=== PATIENT | female | born 1990 | race African-American/Black ===

== ENCOUNTER 2020-03-18 14:12 | Outpatient (REF) | payer MEDICAID, SELFPAY | END 2020-03-18 14:13 | disposition home or self-care (01) | LOC: HO.LAB 14:12 | PROVIDERS: PCP Internal Medicine Geriatric Medicine; Visit Provider Internal Medicine | DX: Z20.822 Contact with and (suspected) exposure to COVID-19 (principal) | CPT/HCPCS: 36415; C9803; U0003 ==

== ENCOUNTER 2020-07-02 13:44 | Emergency (ER) | payer OTHER, MEDICAID, SELFPAY ==
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
[2020-07-02 14:08] VITALS: BP 122/79; PULSE 82; RESP 16; TEMP 36.8; O2SAT 100; BMI 20.8
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
[2020-07-02 15:29] LABS: UPreg QC Valid YES; Urine Pregnancy NEGATIVE (NEGATIVE)
--- NOTE | 2020-07-02 15:51 | PC.NURSE ---
PT TO BE MEDICATED WITH TYLENOL UPON RETURN TO [facility]
[2020-07-02] MEDS: Acetaminophen 325 MG TABLET 650 MG PO (16:11)
== END 2020-07-02 17:24 | disposition home or self-care (01) ==
PROVIDERS: Nurse Practitioner Family; Emergency Provider Emergency Medicine; PCP Internal Medicine Geriatric Medicine
DX: M54.2 Cervicalgia (principal); S06.0X0A Concussion without loss of consciousness, initial encounter; S70.12XA Contusion of left thigh, initial encounter; V43.62XA Car passenger injured in collision with other type car in traffic accident, initial encounter; Y93.89 Activity, other specified; Y92.414 Local residential or business street as the place of occurrence of the external cause; Y99.9 Unspecified external cause status
CPT/HCPCS: 70450; 71101; 72125; 73030; 73552; 81025; 99283; 99284

== ENCOUNTER 2020-09-19 09:46 | Outpatient (REF) | payer MEDICAID, SELFPAY | END 2020-09-19 09:47 | disposition home or self-care (01) | LOC: HO.LAB 09:46 | PROVIDERS: PCP Internal Medicine Geriatric Medicine; Visit Provider Internal Medicine | DX: Z20.822 Contact with and (suspected) exposure to COVID-19 (principal) | CPT/HCPCS: C9803; U0003; U0005 ==

== ENCOUNTER 2021-04-18 23:27 | Emergency (ER) | payer MEDICAID, SELFPAY ==
--- NOTE | ~2021-04-18 | XR_ITS ---
EXAMINATION: XR CHEST CLINICAL INFORMATION: Cough. Fevers. COMPARISON: 07/02/2020 TECHNIQUE: 2 views of the chest were obtained. FINDINGS: The lungs are well expanded. There is no focal consolidation, edema, or effusion. No pneumothorax. The cardiomediastinal silhouette is within normal limits. No acute osseous abnormality. Surgical clips overlie the chest. XR/XR chest 2V IMPRESSION: Clear lungs.
[2021-04-19 00:11] VITALS: BP 123/85; PULSE 85; RESP 16; TEMP 36.9; O2SAT 98; BMI 20.1
[2021-04-19 00:44] LABS: COVID-19 Test Negative (Negative)
[2021-04-19 02:34] VITALS: BP 113/77; PULSE 94; RESP 18; TEMP 37.4; O2SAT 100
[2021-04-19] MEDS: Acetaminophen 325 MG TABLET 975 MG PO (02:52)
[2021-04-19] MEDS: Ondansetron ODT 4 MG TAB.RAPDIS TRANSLINGU (02:53)
[2021-04-19 03:33] LABS: Appearance Urine CLEAR; Color Urine YELLOW; Glucose Urine UA NEG (NEG); Leukocyte Esterase Urine NEG (NEG); Nitrite Urine NEG (NEG); Specific Gravity - Urine >= 1.030 (1.005-1.025); Urine Blood NEG (NEG); Urine Ketones 5 MG/DL (NEG); Urine Protein NEG (NEG-TRACE)
[2021-04-19 03:37] LABS: UPreg QC Valid YES; Urine Pregnancy NEGATIVE (NEGATIVE)
[2021-04-19 04:00] VITALS: BP 109/66; PULSE 95; RESP 17; TEMP 37; O2SAT 95
[2021-04-19] MEDS: Ibuprofen 400 MG TABLET PO (04:02)
--- NOTE | 2021-04-19 04:25 | ED.URI ---
HPI - URI/Sore Throat General Chief Complaint: Upper Respiratory Symptoms Stated Complaint: fever Time Seen by Provider: 04/19/21 03:40 Source: patient and tree doctor Mode of arrival: ambulatory History of Present Illness HPI Narrative: 31-year-old female with presentation for fever, chills, body aches since Saturday and states that it had worsened today. Patient also describes cough with nasal congestion and shortness of breath. Related Data Previous Rx's Medication Instructions Recorded cyclobenzaprine 10 mg tablet 10 mg PO BID PRN #10 tab 07/02/20 ibuprofen 600 mg tablet 600 mg PO Q8H PRN #20 tab 07/02/20 ondansetron 4 mg disintegrating 4 mg PO Q6H PRN #7 tab 04/19/21 tablet Allergies Allergy/AdvReac Type Severity Reaction Status Date / Time shellfish derived Allergy Mild HIVES Verified 04/19/21 02:52 [SHELLFISH DERIVED] shellfish Allergy Unknown swelling Uncoded 04/19/21 02:52 Review of Systems Review of Systems: Pertinent positives and negatives as stated in HPI 10 point review of symptoms is otherwise negative. PMFSH Past Medical History Source: nursing notes reviewed Medical History No known health problems Social History Social History Advance Directives: No Advance Directives Information Provided: Yes Patient : No Physical Exam Vital Signs: Vital Signs: Last Vital Signs Temp 98.6 F 04/19/21 04:00 Pulse 95 04/19/21 04:00 Resp 17 04/19/21 04:00 BP 109/66 04/19/21 04:00 Pulse Ox 95 04/19/21 04:00 BMI result Body Mass Index 20.1 VITAL SIGNS: Reviewed. GENERAL: Well developed, well nourished, in no acute distress. HEAD: Normocephalic EARS: Ext canals without abnormality, TMs non-bulging and non-erythematous NOSE: Nasal congestion OROPHARYNX: no oral lesions noted, posterior pharynx clear and non-erythematous without noted tonsillar enlargement/erythema/exudates NECK: Supple, no adenopathy LUNGS: Normal breath sounds, no expiratory wheeze, no tachypnea, cough is noted. SpO2<95> CARDIOVASCULAR: Regular rate and rhythm without noted murmurs, no JVD or lower extremity edema. ABDOMEN: Soft, non-tender, non-distended with bowel sounds. MUSCULOSKELETAL: No tenderness, deformities, or effusions noted on gross inspection. EXTREMITIES: No cyanosis, clubbing or edema. SKIN: Inspection of the skin reveals no rashes NEUROLOGIC: Alert and oriented x 4. Strength and sensation to light touch were grossly intact x 4. Course Course Course Narrative: 31-year-old female with history and clinical presentation consistent with viral illness. Review of all investigations negative for acute findings, patient was provided with combination analgesics as well as antiemetic and on re-evaluation is reporting some improvement in the body aches. She is otherwise discharged home in stable condition with instructions follow-up with her primary care provider. MDM - URI/Sore Throat Lab Data Labs: Lab Results 04/19/21 04/19/21 04/19/21 Range/Units 00:13 03:19 03:19 Urine Color YELLOW Urine Appearance CLEAR Urine pH 6.0 (5.0-8.0) Ur Specific [place] >= 1.030 H (1.005-1.025) Urine Protein NEG (NEG-TRACE) MG/DL Urine Glucose (UA) NEG (NEG) MG/DL Urine Ketones 5 (NEG) MG/DL Urine Blood NEG (NEG) Urine Nitrite NEG (NEG) Ur Leukocyte Esterase NEG (NEG) Urine Test NEGATIVE (NEGATIVE) COVID-19 (ANA) Negative (Negative) COVID-19 Clin Com See Note Discharge Plan Discharge Clinical Impression: Upper respiratory infection Patient Disposition: Home, Self-Care Instructions: Upper Respiratory Infection (ED) Additional Instructions: 1. Tylenol 1000 mg, por v?a oral, cada 6 horas seg?n sea necesario para el control del dolor/dona corporales/fiebre superior a 100,4. 2. Ibuprofeno 400 mg, por v?a oral con leche o alimentos, cada 6 horas seg?n sea necesario para el control del dolor/dona corporales/fiebre Mayor que 100.4. 3. Aumente la hidrataci?n de l?quidos, especialmente con agua, se le rodriguez proporcionado johnnie receta de medicamentos contra las n?useas para ayudar con esto. 4. Recomiende probar el humidificador de vapor fr?o al lado de la cama para un mayor alivio de los s?ntomas. 5. Bj un seguimiento con lock proveedor de atenci?n primaria llamando a la oficina esta ma?dyllan. Regrese a la yumiko de emergencias si los s?ntomas empeoran. Prescriptions: New ondansetron 4 mg tablet,disintegrating 4 mg PO Q6H PRN (Reason: nausea and vomiting) Qty: 7 0RF No Action ibuprofen 600 mg tablet 600 mg PO Q8H PRN (Reason: pain) Qty: 20 0RF cyclobenzaprine 10 mg tablet 10 mg PO BID PRN (Reason: muscle spasm) Qty: 10 0RF Referrals: [facility] [Primary Care Provider] - 2 days Print Language: Martiniquais
== END 2021-04-19 04:42 | disposition home or self-care (01) ==
PROVIDERS: Emergency Provider Student in an Organized Health Care Education/Training Program
DX: J06.9 Acute upper respiratory infection, unspecified (principal); R50.9 Fever, unspecified; Z20.822 Contact with and (suspected) exposure to COVID-19
CPT/HCPCS: 71046; 81003; 81025; 87635; 99283; 99284

== ENCOUNTER 2022-06-15 10:31 | Outpatient (REF) | payer MEDICAID, SELFPAY ==
--- NOTE | ~2022-06-15 | XR_ITS ---
EXAMINATION: XR CHEST CLINICAL INFORMATION: Acute cough COMPARISON: Chest radiographs 04/19/2021, 07/02/2020 TECHNIQUE: 2 views of the chest were obtained. FINDINGS: The lungs are clear and there is no airspace consolidation or groundglass opacity or effusion. The heart is normal in size. The hilar and mediastinal contours are unremarkable. The costophrenic sulci are well-defined. No acute bony abnormality. XR/XR chest 2V IMPRESSION: Lungs clear.
== END 2022-06-15 10:32 | disposition home or self-care (01) ==
LOC: HO.XRAY 10:31
PROVIDERS: PCP Internal Medicine Geriatric Medicine; Visit Provider Internal Medicine
DX: R05.1 Acute cough (principal)
CPT/HCPCS: 71046

== ENCOUNTER 2022-08-25 18:46 | Emergency (ER) | payer MEDICAID, SELFPAY ==
--- NOTE | 2022-08-25 18:48 | ED.GENADULT ---
HPI - General Adult General Chief complaint: General Medical Stated complaint: throat infection Time Seen by Provider: 08/25/22 19:33 Source: patient Mode of arrival: ambulatory Limitations: no limitations History of Present Illness HPI narrative: Patient is a 32 year old assigned female at with no reported medical history presenting to the emergency department today with a sore throat. Patient states that she has had a sore throat for the last 2 days. Patient denies any dizziness, lightheadedness, abdominal pain, nausea, vomiting, fever, chills, blurry vision, double vision, loss of vision, chest pain, difficulty breathing, shortness of breath, back pain, night sweats, pain with urination, increased urinary frequency, increased urinary urgency, blood in her urine or stool, syncope or a near syncopal episode, recent trauma or falls, bowel incontinence, bladder incontinence, bowel retention, bladder retention, or any other complaints at this time. Onset (ago): day(s) (2) Radiation: non-radiation Severity: mild Severity scale (1-10): 3 Quality: aching and dull Pain Consistency: constant Relieving factors: none Exacerbating factors: none Associated symptoms: denies other symptoms Treatments prior to arrival: none Related Data Previous Rx's Medication Instructions Recorded cyclobenzaprine 10 mg tablet 10 mg PO BID PRN muscle spasm #10 07/02/20 tabs ibuprofen 600 mg tablet 600 mg PO Q8H PRN pain #20 tabs 07/02/20 ondansetron 4 mg disintegrating 4 mg PO Q6H PRN nausea and 04/19/21 tablet vomiting #7 tabs penicillin V potassium 500 mg 500 mg PO BID 10 days #20 tabs 08/25/22 tablet Allergies Allergy/AdvReac Type Severity Reaction Status Date / Time shellfish derived Allergy Mild HIVES Verified 04/19/21 02:52 [SHELLFISH DERIVED] shellfish Allergy Unknown swelling Uncoded 04/19/21 02:52 Review of Systems Constitutional: Constitutional: Reports no additional constitutional complaints, Denies chills, Denies fever(s) and Denies night sweats Eyes: Eyes: Reports no additional eye complaints, Denies blurry vision, Denies change in vision, Denies diplopia, Denies eye discharge, Denies loss of vision and Denies eye pain ENT: Denies dizziness and Reports sore throat Cardiovascular: Cardiovascular: Reports no additional cardiovascular complaints, Denies chest pain, Denies lightheadedness, Denies Loss of Consciousness and Denies dyspnea Respiratory: Respiratory: Reports no additional respiratory complaints and Denies dyspnea Gastrointestinal: Gastrointestinal: Reports no additional gastrointestinal complaints, Denies abdominal pain, Denies melena, Denies hematochezia, Denies change in bowel habits and Denies change in stool character Genitourinary: Genitourinary: Denies hematuria, Denies urinary frequency, Denies dysuria, Denies urinary incontinence, Denies urinary hesitancy and Denies urinary urgency Musculoskeletal: Musculoskeletal: Reports no additional musculoskeletal complaints, Denies numbness and Denies tingling Neurologic: Denies dizziness, Denies loss of vision, Denies numbness and Denies tingling Psychiatric: Psychiatric: Reports no additional psychiatric complaints Endocrine: Endocrine: Reports no additional endocrine complaints Hematologic/Lymphatic: Hematologic/Lymphatic: Reports no additional hematologic/lymphatic complaints Allergic/Immunologic: Allergic/Immunologic: Reports no additional allergic/immunologic complaints PMFSH Past Medical History Attestation statement: The following information was validated with the patient. Source: old records reviewed and nursing notes reviewed Medical History No known health problems Social History Social History Advance Directives: No Advance Directives Information Provided: No Physical Exam ED Vital Signs: Vital Signs - 24 hr 08/25/22 18:52 Temperature 99.7 F Pulse Rate 109 H Respiratory Rate 18 Blood Pressure 127/68 Pulse Oximetry 99 Oxygen Delivery Method Room Air BMI result Body Mass Index 17.7 Const General: cooperative, no acute distress, alert and awake Nutritional Appearance: well nourished Orientation/consciousness: patient oriented x3 Limitations: no limitations [facility] Head: Yes normal to inspection and Yes atraumatic Ears: hearing grossly normal bilaterally and external ears normal General nose exam: Normal external nose present, no nasal discharge noted and no epistaxis Face and sinus: Yes normal facial exam, No abrasion and No laceration Mouth: Normal oral and palatal mucosa present, no drooling and no muffled voice Throat: Yes posterior oropharynx abnormal (erythema) Eyes General: appearance normal, both eyes and all related structures Periorbital: periorbital findings normal Eyelids: Yes eyelids normal Conjunctivae: conjunctivae normal Pupils: Equal, round and reactive pupils present EOM: EOMs intact bilaterally Neck Neck: Yes normal visual inspection, Yes full ROM and Yes no lymphadenopathy Chest Chest palpation & inspection: normal inspection of the chest Resp Effort & Inspection: normal respiratory effort and able to speak in complete sentences GI Inspection: Yes normal to inspection Neuro General: patient oriented x3 and moves all extremities Cranial nerves: Yes Equal, round and reactive pupils present Cognition (Neuro): normal cognition Motor exam (neuro): 5/5 motor strength present throughout Sensory Exam: Normal double simultaneous stimulation for sensation Coordination: [id number] test normal Extrem General: Yes normal to inspection, Yes full ROM and Yes capillary refill normal Psych Appearance: grossly normal Mental Status: mental status grossly normal Affect: normal affect Attitude: cooperative Thought process: Normal thought process present Thought content: Normal thought content present Insight: Good insight present (Psych) Course Course Course Narrative: RME performed by Tania Davis PA-C. Patient is a 32 year old assigned female at presenting to the emergency department with a sore throat. Swabs ordered. Patient placed back in the waiting room pending room availability and results. Medical Decision Making Medical Decision Making MDM Narrative: Patient is a 32 year old assigned female at with no reported medical history presenting to the emergency department today with a sore throat. Patient's physical exam showed posterior oropharynx erythema. Patient's strep test was positive. I explained my physical exam findings as well as all test results to the patient. I answered all questions asked by the patient. I stressed the importance of the patient taking her medication as prescribed. I stressed the importance of the patient following up with her primary care provider. I stressed the importance of the patient returning to the emergency department immediately if her symptoms were to worsen or if she were to develop any dizziness, shortness of breath, difficulty breathing, chest pain, blurry vision, loss of vision, nausea, vomiting, abdominal pain, fever, chills, back pain, or any other complaints. Patient verbalized agreement and understanding with this treatment plan and discharge. Differential Diagnosis Differential Diagnoses: The differential diagnosis associated with the presentation includes Viral illness Pharyngitis Strep pharyngitis - Confirmed with positive strep test Peritonsilar abscess - No uvular deviation or voice change Tonsilitis GERD COVID-19 Influenza Admission/Observation Consideration of admission/observation: Escalation of care including admission/observation considered Patient would have been admitted to the hospital had her work up had any findings where hospital admission was appropriate and her clinical presentation warranted hospital admission. Lab Data MDM Lab Attestation statement: I reviewed the patient's lab results. Patient's strep test was positive and her COVID/influenza tests were negative. Labs: Lab Results 08/25/22 08/25/22 08/25/22 Range/Units 19:01 19:01 19:01 COVID-19 (ANA) Negative (Negative) COVID-19 Clin Com See Note Influenza Type A (CAL) Negative (Negative) Influenza Type B (CAL) Negative (Negative) Influenza A & B Note See Note S. pyogenes GrpA CAL Positive A (Negative) Prescription Management I considered prescription management with: Antibiotic (patient prescribed an antibiotic.) Discharge Plan Discharge Clinical Impression: Strep pharyngitis Patient Disposition: Home, Self-Care Instructions: Strep Throat (DC) Additional Instructions: Follow up with your primary care provider. Return to the emergency department immediately if your symptoms worsen or if you develop any dizziness, shortness of breath, difficulty breathing, chest pain, blurry vision, loss of vision, nausea, vomiting, abdominal pain, fever, chills, back pain, or any other complaints. Bj un seguimiento con lock proveedor de atenci?n primaria. Regrese al departamento de emergencias de inmediato si nikki s?ntomas empeoran o si presenta mareos, falta de aire, dificultad para respirar, dolor de pecho, visi?n borrosa, p?rdida de la visi?n, n?useas, v?mitos, dolor abdominal, fiebre, escalofr?os, dolor de espalda o cualquier otras quejas. Prescriptions: New penicillin V potassium 500 mg tablet 500 mg PO BID 10 Days Qty: 20 0RF No Action ibuprofen 600 mg tablet 600 mg PO Q8H PRN (Reason: pain) Qty: 20 0RF cyclobenzaprine 10 mg tablet 10 mg PO BID PRN (Reason: muscle spasm) Qty: 10 0RF ondansetron 4 mg tablet,disintegrating 4 mg PO Q6H PRN (Reason: nausea and vomiting) Qty: 7 0RF Referrals: Rishi Rosales MD [Primary Care Provider] - Stand Alone Forms: Work/School Release Interventions: ED Discharge Assessment Last Done: 08/25/22 19:37 Print Language: Vietnamese
[2022-08-25 18:52] VITALS: BP 127/68; PULSE 109; RESP 18; TEMP 37.6; O2SAT 99; BMI 17.7
== END 2022-08-25 19:37 | disposition home or self-care (01) ==
PROVIDERS: Emergency Provider Emergency Medicine; PCP Internal Medicine Geriatric Medicine
DX: J02.0 Streptococcal pharyngitis (principal); Z20.822 Contact with and (suspected) exposure to COVID-19
CPT/HCPCS: 87502; 87635; 87651; 99282; 99283

== ENCOUNTER 2022-12-13 09:25 | Outpatient (AMB) | payer MEDICAID, SELFPAY ==
--- NOTE | 2022-12-13 09:36 | A.OFFVIS_ITS ---
Intake Vital Signs 12/13/22 09:41 Height 5 ft 6 in Weight 129 lb BMI 20.8 BP 120/64 Intake Visit Reasons: PREG CONSULT Intake Note: Feeling back pain and lower abdominal pressure. Concrete Technician Required: Yes Concrete Technician Language: [place] Allergies shellfish derived [SHELLFISH DERIVED] Allergy (Mild, Verified 04/19/21 02:52) HIVES shellfish Allergy (Unknown, Uncoded 04/19/21 02:52) swelling Medication List - Last Reconciled 12/13/22 by LUZ Aldana cmb#95-ferrous fumarate-FA 28 mg iron- 800 mcg () 1 tab PO QAM Is last menstrual period known: No (States in October) Post menopausal: No HPI PREG CONSULT HPI Details Patient is here for consult visit she actually already knows she is she had tests come positive at home and she went for confirmation at the [facility] which is where she goes for primary care. She came here in her previous pregnancies she says she did have complications with diabetes and at the very end there was something with her baby's heartbeat during the labor. She is happy about this . She had a Mirena IUD that was giving her a lots of cramps with her. But she had it in for 5 years she had it removed about 3 months ago. She has 3 children age 11 7 and 5. She is happy about the . She works 2 jobs 10 hours a day and says she does have a low back ache but thinks that is why;- she never sits down. She does have transportation and could go to [facility] for care. I explained that we no longer have a birthing center here and in any case because of her history of gestational diabetes we would recommend that she receive all of her care at [facility] from the start but I will order an ultrasound just to check for dating and we will have a visit right after the ultrasound just to confirm gestational age and I will be giving her a list of practices at [facility] that she can start calling to schedule care. She is agreeable with this plan and I told her for any emergencies we recommend she go to [facility] as well. She is already taking vitamins that she got at the [facility] when she went for the test. [facility] Medical History (Updated 12/13/22 @ 10:06 by Bita Mcconnell CNM) No known health problems Surgical History (Updated 12/13/22 @ 09:47 by VAZQUEZ Arriaga) Hx of breast augmentation Female Reproductive History Menstrual Duration of menses: 3-5 days control method: none Total pregnancies: 4 Full term: 3 Number of Living Children: 3 Physical Exam Vital Signs: Last Vital Signs BP 120/64 12/13/22 09:41 BMI result Body Mass Index 20.8 Results AMB Test Urine AMB Test Urine Positive Last Edit by VAZQUEZ Arriaga on 09:53 Results Reviewed Results Reviewed: Laboratory Last Values [facility] Positive 12/13/22 09:52 Assessment & Plan Assessment & Plan (1) Early stage of : Comment: States removed Mirena 3 months ago LMP 10/30-11/04. history of GDM in previous Code(s): Z34.90 - Encounter for supervision of normal , unspecified, unspecified trimester Plan Patient is here for consult visit she actually already knows she is she had tests come positive at home and she went for confirmation at the [facility] which is where she goes for primary care. She came here in her previous pregnancies she says she did have complications with diabetes and at the very end there was something with her baby's heartbeat during the labor. She is happy about this . She had a Mirena IUD that was giving her a lots of cramps with her. But she had it in for 5 years she had it removed about 3 months ago. She has 3 children age 11 7 and 5. She is happy about the . She works 2 jobs 10 hours a day and says she does have a low back ache but thinks that is why;- she never sits down. She does have transportation and could go to [facility] for care. I explained that we no longer have a birthing center here and in any case because of her history of gestational diabetes we would recommend that she receive all of her care at [facility] from the start but I will order an ultrasound just to check for dating and we will have a visit right after the ultrasound just to confirm gestational age and I will be giving her a list of practices at [facility] that she can start calling to schedule care. She is agreeable with this plan and I told her for any emergencies we recommend she go to [facility] as well. She is already taking vitamins that she got at the [facility] when she went for the test. Orders: Orders US OB <= 14 weeks fetus Today Z34.90 - Encounter for supervision of normal , unspecified, unspecified trimester AMB HCG Urine Test Today Z32.01 - Encounter for test, result positive Coding Level of Care Code New Pt Level 3 (78049) Diagnoses Early stage of Z34.90
[2022-12-13 09:41] VITALS: BP 120/64; BMI 20.8
== END 2022-12-13 13:03 | disposition home or self-care (01) ==
PROVIDERS: PCP Internal Medicine Geriatric Medicine; Visit Provider Advanced Practice Midwife
DX: Z34.90 Encounter for supervision of normal pregnancy, unspecified, unspecified trimester (principal)
CPT/HCPCS: 99203

== ENCOUNTER → 2022-12-13 09:25 | Outpatient (BNVA) | payer MEDICAID, SELFPAY | PROVIDERS: PCP Internal Medicine Geriatric Medicine; Visit Provider Advanced Practice Midwife | DX: Z34.80 Encounter for supervision of other normal pregnancy, unspecified trimester (principal) | CPT/HCPCS: 99212 ==

== ENCOUNTER 2022-12-28 14:35 | Outpatient (REF) | payer MEDICAID, SELFPAY ==
--- NOTE | ~2022-12-28 | US_ITS ---
EXAMINATION: US OBSTETRICAL ULTRASOUND CLINICAL INFORMATION: Dating and viability, positive home test COMPARISON: OB ultrasound 10/27/2017 LMP: 10/30/2022. Gestational age by maternal dates is 8 weeks and 3 days. Estimated date of delivery by maternal dates is 08/06/2023. TECHNIQUE: Ultrasound of the maternal pelvis is performed using transabdominal and transvaginal transducers. Transvaginal imaging is performed due to inadequate visualization transabdominally. M-mode Doppler is also performed. FINDINGS: There is a single intrauterine gestational sac with visible yolk sac, embryo/fetus, and cardiac activity. There is no significant subchorionic hemorrhage or hematoma. HR: 136 beats per minute. CRL (crown rump length): 1 cm (7 weeks and 1 day +/- 4 days). ISABELLA (estimated date of delivery): 08/15/2023 +/- 4 days. MATERNAL ADNEXA: The right maternal ovary was not identified sonographically. The left maternal ovary measures 3.0 x 2.0 x 1.9 cm. A physiologic 1.5 cm left ovarian corpus luteum is seen. No suspicious adnexal masses. There is no significant maternal adnexal mass. No maternal pelvic ascites. US/US OB <= 14 weeks fetus IMPRESSION: 1. Single intrauterine gestation with ultrasound gestational age of 7 weeks and 1 day +/- 4 days. 2. Estimated date of delivery is 08/15/2023 +/- 4 days. 3. No maternal adnexal mass or pelvic ascites.
== END 2022-12-28 14:36 | disposition home or self-care (01) ==
LOC: HO.US 14:35
PROVIDERS: PCP Internal Medicine Geriatric Medicine; Visit Provider Advanced Practice Midwife
DX: Z34.91 Encounter for supervision of normal pregnancy, unspecified, first trimester (principal); Z3A.08 8 weeks gestation of pregnancy
CPT/HCPCS: 76801

== ENCOUNTER 2023-01-01 11:33 | Outpatient (AMB) | payer MEDICAID, SELFPAY ==
[2023-01-01 11:34] VITALS: BP 104/64; BMI 20.8
--- NOTE | 2023-01-01 11:34 | MHC.OFFVIS ---
Intake Vital Signs 01/01/23 11:34 Height 5 ft 6 in Weight 129 lb BMI 20.8 BP 104/64 Intake Visit Reasons: US follow up Intake Note: Nauseas and dizziness Ross Carrier Driver Required: Yes Ross Carrier Driver Language: Japanese Accompanied by: sons x3 Allergies shellfish derived [SHELLFISH DERIVED] Allergy (Mild, Verified 01/01/23 11:38) HIVES shellfish Allergy (Unknown, Uncoded 01/01/23 11:38) swelling Post menopausal: No Patient : Yes HPI US follow up HPI Details Patient is here for follow-up ultrasound of a dating per ultrasound. Patient had stated at the test visit that she had had diabetes in her previous but now she states that her blood sugar just got a little low could she was not eating very well review of EC W reveals that it I am unable to view the records from 2018 which was her last however documentation that her visits occurred is there and the review of her history when she was admitted to the birthing center for induction of labor status post a D cell that was audible and the office at term, there was no mention of gestational diabetes in [facility] as is admission note. The patient desires to obtain care here if she can she is here with her 3 young boys today. She says she is only having a little bit of nausea and she would like some medicine to help with that she would like the prescription sent to the [facility]. I explained that if she does develop gestational diabetes or any other difficulty that she would need to be transferred to [facility] and she said she understands. Her next visit will be for the lump room supervisor with translation and I did tell her that she will be going for lab work after that visit. In addition I will be ordering the 12 week nuchal translucency ultrasound so that that can be planned for.. [facility] Medical History (Updated 01/01/23 @ 12:04 by Bita Mcconnell CNM) No known health problems Surgical History (Updated 12/13/22 @ 09:47 by VAQZUEZ Arriaga) Hx of breast augmentation Female Reproductive History Menstrual Duration of menses: 3-5 days control method: none Total pregnancies: 4 Full term: 3 Number of Living Children: 3 Results Reviewed Results Reviewed: Patient: Alexsandra Rosas MR#: [id number] : 1990 Acct:[id number] Age/Sex: 32 / F ADM Date: 12/28/22 Loc: HO.US Attending Dr: Bita Mcconnell CNM Ordering Physician: Bita Mcconnell CNM Date of Service: 12/28/22 Procedure(s): US OB <= 14 weeks fetus Accession Number(s): [id number] cc: Name,Rishi NAVARRETE; Bita Mcconnell CNM~ EXAMINATION: US OBSTETRICAL ULTRASOUND CLINICAL INFORMATION: Dating and viability, positive home test COMPARISON: OB ultrasound 10/27/2017 LMP: 10/30/2022. Gestational age by maternal dates is 8 weeks and 3 days. Estimated date of delivery by maternal dates is 08/06/2023. TECHNIQUE: Ultrasound of the maternal pelvis is performed using transabdominal and transvaginal transducers. Transvaginal imaging is performed due to inadequate visualization transabdominally. M-mode Doppler is also performed. FINDINGS: There is a single intrauterine gestational sac with visible yolk sac, embryo/fetus, and cardiac activity. There is no significant subchorionic hemorrhage or hematoma. HR: 136 beats per minute. CRL (crown rump length): 1 cm (7 weeks and 1 day +/- 4 days). ISABELLA (estimated date of delivery): 08/15/2023 +/- 4 days. MATERNAL ADNEXA: The right maternal ovary was not identified sonographically. The left maternal ovary measures 3.0 x 2.0 x 1.9 cm. A physiologic 1.5 cm left ovarian corpus luteum is seen. No suspicious adnexal masses. There is no significant maternal adnexal mass. No maternal pelvic ascites. US/US OB <= 14 weeks fetus IMPRESSION: 1. Single intrauterine gestation with ultrasound gestational age of 7 weeks and 1 day +/- 4 days. 2. Estimated date of delivery is 08/15/2023 +/- 4 days. 3. No maternal adnexal mass or pelvic ascites. Dictated By: Beckie Tejada MD Signed By: <Electronically signed by Beckie Tejada MD in OV> 12/31/22 1724 DD/ 1453 TD/TT: Territory Account Executive: Assessment & Plan Assessment & Plan (1) Early stage of : Comment: States removed Mirena 3 months ago LMP 10/30-11/04. history of GDM in previous ,(01/01/23- unable to find documentation in chart of this). pt desires pn care here- will initiate care [place] [facility].01/01/23. isabella 08/15/23 per u/s Code(s): Z34.90 - Encounter for supervision of normal , unspecified, unspecified trimester Plan Patient is here for follow-up ultrasound of a dating per ultrasound. Patient had stated at the test visit that she had had diabetes in her previous but now she states that her blood sugar just got a little low could she was not eating very well review of EC W reveals that it I am unable to view the records from 2018 which was her last however documentation that her visits occurred is there and the review of her history when she was admitted to the birthing center for induction of labor status post a D cell that was audible and the office at term, there was no mention of gestational diabetes in [facility] as is admission note. The patient desires to obtain care here if she can she is here with her 3 young boys today. She says she is only having a little bit of nausea and she would like some medicine to help with that she would like the prescription sent to the the [facility]. I explained that if she does develop gestational diabetes or any other difficulty that she would need to be transferred to [facility] and she said she understands. Her next visit will be for the lump room supervisor with translation and I did tell her that she will be going for lab work after that visit. Her OB physical will be after the lump room supervisor. In addition I will be ordering the 12 week nuchal translucency ultrasound so that that can be planned for.. Orders: Orders US OB 1T nuc measure 5 Weeks Z34.90 - Encounter for supervision of normal , unspecified, unspecified trimester Medications: New pyridoxine (vitamin B6) 25 mg PO TID 90 tabs 0RF doxylamine succinate (Unisom (doxylamine)) 25 mg PO BEDTIME PRN 30 tabs 0RF sleep Coding Level of Care Code Est Pt Level 3 (77421) Diagnoses Early stage of Z34.90
== END 2023-01-01 12:02 | disposition home or self-care (01) ==
LOC: HO.HWS 11:33
PROVIDERS: PCP Internal Medicine Geriatric Medicine; Visit Provider Advanced Practice Midwife
DX: Z34.90 Encounter for supervision of normal pregnancy, unspecified, unspecified trimester (principal)
CPT/HCPCS: 99213

== ENCOUNTER → 2023-01-01 11:33 | Outpatient (BNVA) | payer MEDICAID, SELFPAY | PROVIDERS: PCP Internal Medicine Geriatric Medicine; Visit Provider Advanced Practice Midwife | DX: Z34.81 Encounter for supervision of other normal pregnancy, first trimester (principal); Z3A.01 Less than 8 weeks gestation of pregnancy | CPT/HCPCS: 99212 ==

== ENCOUNTER 2023-01-05 00:08 | Emergency (ER) | payer MEDICAID, SELFPAY ==
[2023-01-05 00:16] VITALS: BP 111/80; PULSE 81; RESP 16; TEMP 37; O2SAT 100; BMI 20.8
--- NOTE | 2023-01-05 00:34 | PC.NURSE ---
Pt AOX3, pt reporting right sided facial swelling, reporting 9/10 pain, tender on palpation more toward sinuses, visible swelling noted to right side of face. Pt is able to speak in full sentences, respirations are equal and unlabored. No redness or abscess noted in pts mouth. Pt reports having a sinus infection about 3 weeks ago. Pt is 8 weeks . Pt aware of plan of care awaiting provider.
--- NOTE | 2023-01-05 00:53 | ED_ITS ---
HPI - Dental/Oral General Chief complaint: Dental/Oral Stated complaint: Dental Pain Time Seen by Provider: 01/05/23 00:52 Source: patient Mode of arrival: ambulatory Limitations: no limitations History of Present Illness HPI Narrative: Patient is 8 weeks with dental cavity in upper right canine, noticed increased pain and swelling of the right cheek earlier today had low-grade fever Related Data Home Medications Medication Instructions Recorded Confirmed vit no.95-ferrous 1 tab PO QAM 12/13/22 12/13/22 fumarate 28 mg-folic acid 800 mcg tablet () Previous Rx's Medication Instructions Recorded doxylamine succinate 25 mg tablet 25 mg PO BEDTIME PRN sleep #30 tabs 01/01/23 (Unisom (doxylamine)) pyridoxine (vitamin B6) 25 mg 25 mg PO TID #90 tabs 01/01/23 tablet amoxicillin 875 mg-potassium 1 tab PO BID #20 tabs 01/05/23 clavulanate 125 mg tablet oxycodone-acetaminophen 5 mg-325 1 tab PO Q6H PRN pain #20 tabs 01/05/23 mg tablet (Percocet) Allergies Allergy/AdvReac Type Severity Reaction Status Date / Time shellfish derived Allergy Mild HIVES Verified 01/01/23 11:38 [SHELLFISH DERIVED] shellfish Allergy Unknown swelling Uncoded 01/01/23 11:38 Review of Systems 2 Review of Systems: Yes all other systems are reviewed and are negative [facility] Past Medical History Medical History No known health problems Surgical History Hx of breast augmentation Social History Social History Smoked in Last 30 Days: No Use of substances other than those prescribed or required for medical reasons: No Advance Directives: No Advance Directives Information Provided: No Patient : Yes Physical Exam 2 Vital Signs: Vital Signs: Last Vital Signs Temp 98.6 F 01/05/23 00:16 Pulse 81 01/05/23 00:16 Resp 16 01/05/23 00:16 BP 111/80 01/05/23 00:16 Pulse Ox 100 01/05/23 00:16 O2 Del Method Room Air 01/05/23 00:16 BMI result Body Mass Index 20.8 Appearance: Alert. Oriented X3. Mild distEyes: PERRLA, No Nystagmus ENT: Pharynx normal. Oral Mucosa moist swelling to right cheek/maxillary area care he is in right upper canine with slight swelling of the gum Neck: Normal inspection. Neck supple. No lymphadenopathy CVS: Normal heart rate and rhythm. Pulses normal. Respiratory: No respiratory distress. Equal air entry bilateral, Abdomen: Soft and nontender. Bowel sounds are present, Extremities: No lower extremity edema. No calf tenderness Neuro: Oriented X 3. HEENT: Teeth image: 1. Cavity in tooth 6. With slight gum swelling Medical Decision Making Medical Decision Making MDM Narrative: Needle aspiration was done on tooth 6. After local infiltration with lidocaine no pus drained will discharge patient home on Augmentin and Percocet Differential Diagnosis Differential Diagnoses: The differential diagnosis associated with the presentation includes Dental abscess/cellulitis Discharge Plan Discharge Clinical Impression: Dental caries Patient Disposition: Home, Self-Care Instructions: Toothache (ED) Additional Instructions: Take antibiotics and pain medication as prescribed Follow-up with dentist [facility] [place] antibi?ticos y analg?sicos seg?n lo recetado. Seguimiento con dentista. odontolog?a de [facility] Prescriptions: New oxycodone-acetaminophen [Percocet] 5-325 mg tablet 1 tab PO Q6H PRN (Reason: pain) Qty: 20 0RF Rx Instructions: Partial Fill upon patient request. amoxicillin-pot clavulanate 875-125 mg tablet 1 tab PO BID Qty: 20 0RF No Action PNV cmb#95-ferrous fumarate-FA [] 28 mg iron- 800 mcg tablet 1 tab PO QAM pyridoxine (vitamin B6) 25 mg tablet 25 mg PO TID Qty: 90 0RF Unisom (doxylamine) 25 mg tablet 25 mg PO BEDTIME PRN (Reason: sleep) Qty: 30 0RF Print Language: St Helenian
[2023-01-05] MEDS: oxyCODONE HCl Immed Release 5 MG TABLET PO (01:54)
[2023-01-05] MEDS: Amoxicillin/Potassium Clav 875 MG TABLET PO (01:55)
[2023-01-05] MEDS: Lidocaine HCl 1 % MPF 2 ML VIAL INFILTRATI (01:55)
== END 2023-01-05 02:04 | disposition home or self-care (01) ==
PROVIDERS: Emergency Provider Internal Medicine; PCP Internal Medicine Geriatric Medicine
DX: K02.9 Dental caries, unspecified (principal); K08.89 Other specified disorders of teeth and supporting structures
CPT/HCPCS: 10160; 99283; 99284

== ENCOUNTER 2023-01-16 10:02 | Outpatient (REF) | payer MEDICAID, SELFPAY ==
[2023-01-16 12:17] LABS: Hematocrit 38.7 % (37.0-47.0); Hemoglobin 12.8 g/dl (12.0-16.0); Mean Corpuscular HGB Conc 33.1 g/dl (31.0-35.0); Mean Corpuscular Hemoglobin 29.7 pg (27.0-33.0); Mean Corpuscular Volume 89.8 fL (80.0-98.0); Mean Platelet Volume 9.8 fL (9.4-12.3); Platelet Count 326 X10*3/uL (160-400); Red Blood Count 4.31 X10*6/uL (4.20-5.50); Red Cell Distribution Width 12.8 % (11.0-16.0)
[2023-01-16 12:53] LABS: Syphilis Screen Nonreactive (Nonreactive)
[2023-01-16 12:56] LABS: HBsAGNum1 1.84 S/CO (0.00-0.99); HIV AB/AG Nonreactive (Nonreactive); HIV Num 1 0.05 S/CO (0.00-0.99); ~HepC Num1 0.11 S/CO (0.00-0.79); ~Hepatitis C Antibody Nonreactive (Nonreactive)
[2023-01-16 14:10] LABS: HBsAGNum2 Reactive; HBsAGNum3 Reactive; Hepatitis B Surface Antigen Retest CNFM (Negative)
[2023-01-16 14:11] LABS: Hepatitis B Surface Antigen Rep Reactive (Negative)
[2023-01-18 12:59] LABS: Rubella IgG Antibody 7.65 Index
[2023-01-27 11:38] LABS: HBsAG SEE COMMENTS
[2023-01-27 17:49] LABS: CF Ethnicity NG; Cystic Fibrosis NEGATIVE (NEGATIVE)
== END 2023-01-16 10:03 | disposition home or self-care (01) ==
LOC: HO.LAB 10:02
PROVIDERS: PCP Internal Medicine Geriatric Medicine; Visit Provider Advanced Practice Midwife
DX: Z34.91 Encounter for supervision of normal pregnancy, unspecified, first trimester (principal); Z3A.09 9 weeks gestation of pregnancy
CPT/HCPCS: 81220; 85027; 86762; 86780; 86787; 86803; 86850; 86900; 87340; 87389; 99212

== ENCOUNTER 2023-01-16 10:02 | Outpatient (AMB) | payer MEDICAID, SELFPAY ==
--- OUTSIDE RECORDS SUMMARY | 2023-01-16 10:03 | XMS_ITS | Continuity of Care Document ---
Author Name Unknown Organization [facility] Address [address] [address]- Care Team Providers Care Commercial Agent Name Role Phone Name Rishi NAVARRETE Primary Care Physician Encounter [facility] Date(s): 12/13/22 - 01/12/23 [facility] [address] [place] [id number] Allergies, Adverse Reactions, Alerts Substance Reaction Severity Status Shrimp can't breathe, eyes red , swollen body Active Other Food Allergy all seafood except fish - trouble b reathing Active Social History Social History Type Response Smoking Status Never (less than 100 in lifetime) entered on: 04/29/18 Sex Patient Care team information Care Team Personnel Name: Name Rishi NAVARRETE Position: [facility] Outreach Member Role: PCP Address: Address: [address] [place] [id number]- Care Team Related Persons Name: EDWINA SPRINGER Address: home [address] [address]
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
[2023-01-16 11:24] VITALS: BMI 21.5
== END 2023-01-16 11:16 | disposition home or self-care (01) ==
LOC: HO.HWS 10:02
PROVIDERS: PCP Internal Medicine Geriatric Medicine; Visit Provider Advanced Practice Midwife
DX: Z34.90 Encounter for supervision of normal pregnancy, unspecified, unspecified trimester (principal); F41.8 Other specified anxiety disorders
CPT/HCPCS: 25942

== ENCOUNTER 2023-01-21 09:08 | Outpatient (REF) | payer MEDICAID, SELFPAY ==
[2023-01-21 10:35] LABS: Amphetamine Screen Urine Not Detected (Not Detect); Barbiturates, Urine Not Detected (Not Detect); Benzodiazepines Screen Urine Not Detected (Not Detect); Cannabinoid Screen Urine Not Detected (Not Detect); Cocaine Screen Urine Not Detected (Not Detect); Fentanyl, urine Not Detected (Not Detect); Opiate Screen Urine Not Detected (Not Detect); Phencyclidine Screen Urine Not Detected (Not Detect)
[2023-01-21 11:41] LABS: Glucose 1 Hour PP 50gm Dose 57 mg/dL (60-140)
[2023-01-22 02:20] LABS: CT PCR NOT DETECTED (Not Detect.); NG PCR NOT DETECTED (Not Detect.)
[2023-01-22 12:08] LABS: BV Int Neg Control Negative (Negative); BV Int Pos Control Positive (Positive)
== END 2023-01-21 09:09 | disposition home or self-care (01) ==
LOC: HO.LAB 09:08
PROVIDERS: PCP Internal Medicine Geriatric Medicine; Visit Provider Advanced Practice Midwife
DX: O26.891 Other specified pregnancy related conditions, first trimester (principal); F41.8 Other specified anxiety disorders; Z3A.10 10 weeks gestation of pregnancy
CPT/HCPCS: 0353U; 80307; 82950; 87086; 87480; 87510; 87624; 87660; 88142; 99212

== ENCOUNTER 2023-01-21 11:03 | Outpatient (AMB) | payer MEDICAID, SELFPAY ==
[2023-01-21 11:38] VITALS: BP 110/62; BMI 21.1
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
== END 2023-01-21 12:50 | disposition home or self-care (01) ==
LOC: HO.HWS 11:03
PROVIDERS: PCP Internal Medicine Geriatric Medicine; Visit Provider Advanced Practice Midwife
DX: F41.8 Other specified anxiety disorders (principal); Z34.90 Encounter for supervision of normal pregnancy, unspecified, unspecified trimester
CPT/HCPCS: 25942; S3005

== ENCOUNTER 2023-01-21 12:25 | Outpatient (REF) | payer MEDICAID, SELFPAY ==
[2023-01-25 03:28] LABS: HPV mRNA E6/E7 rflx Not Detected (Not Detected)
== END 2023-01-21 12:26 | disposition home or self-care (01) ==
LOC: HO.LNP 12:25
PROVIDERS: Visit Provider Advanced Practice Midwife
DX: Z12.4 Encounter for screening for malignant neoplasm of cervix (principal); Z11.51 Encounter for screening for human papillomavirus (HPV)
CPT/HCPCS: 87624; 88142

== ENCOUNTER 2023-02-01 14:57 | Emergency (ER) | payer MEDICAID, SELFPAY ==
--- NOTE | ~2023-02-01 | US_ITS ---
EXAMINATION: US OBSTETRICAL ULTRASOUND CLINICAL INFORMATION: Pain and bleeding COMPARISON: None available. LMP: 10/30/2022. Gestational age by maternal dates is 13 weeks and 3 days. Estimated date of delivery by maternal dates is 08/06/2023.. TECHNIQUE: Transabdominal imaging of pelvis was performed. FINDINGS: There is a single intrauterine gestational sac with visible embryo/fetus, and cardiac activity. There is no significant subchorionic hemorrhage or hematoma. HR: 170 beats per minute. CRL (crown rump length): 5.70 cm (12 weeks and 2 days +/- 4 days). ISABELLA (estimated date of delivery): 08/14/2023 +/- 4 days. MATERNAL ADNEXA: The right maternal ovary is not visualized. The left maternal ovary measures 2.9 x 1.8 x 2.8 cm. There is anechoic cyst measuring 1.2 x 1.1 x 1.1 cm. There is no significant maternal adnexal mass. No maternal pelvic ascites. US/US OB <= 14 weeks fetus IMPRESSION: 1. Single intrauterine gestation with ultrasound gestational age of 12 weeks and 2 days +/- 4 days. 2. Estimated date of delivery is 08/15/2023 +/- 4 days. 3. Left ovarian cyst.
[2023-02-01 15:22] VITALS: BP 120/73; PULSE 88; RESP 16; TEMP 37.1; O2SAT 96; BMI 21.3
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
[2023-02-01 15:49] LABS: MANUAL DIFF FLAG NO
[2023-02-01 15:51] LABS: Basophils Percent Auto 0.3 % (0-2); Eosinophils Absolute Auto 0.3 X10*3/uL (0.0-0.4); Eosinophils Percent Auto 4.8 % (0-4); Hemoglobin 13.3 g/dl (12.0-16.0); Imm Gran Abs Auto 0.02 X10*3/uL (0.00-0.03); Imm Gran Pct Auto 0.3 % (0.0-0.4); Lymphocytes Absolute Auto 0.5 X10*3/uL (1.2-4.9); Lymphocytes Percent Auto 7.5 % (20-40); Mean Corpuscular HGB Conc 33.3 g/dl (31.0-35.0); Mean Corpuscular Hemoglobin 29.3 pg (27.0-33.0); Mean Corpuscular Volume 88.1 fL (80.0-98.0); Mean Platelet Volume 9.4 fL (9.4-12.3); Monocytes Absolute Auto 0.5 X10*3/uL (0.1-1.2); Monocytes Percent Auto 7.6 % (2-11); Neutrophils Absolute Auto 5.3 x10*3/uL (2.0-8.3); Neutrophils Percent Auto 79.5 % (45-73); Platelet Count 283 X10*3/uL (160-400); Red Blood Count 4.54 X10*6/uL (4.20-5.50); Red Cell Distribution Width 13.4 % (11.0-16.0); White Blood Count 6.7 X10*3/uL (4.8-10.8)
[2023-02-01 16:17] LABS: Alanine Aminotransferase 39 U/L (0-31); Alkaline Phosphatase 46 U/L (39-117); Anion Gap 10 (12-20); Aspartate Amino Transferase 30 U/L (5-31); Bilirubin Total 0.2 mg/dL (0.0-1.0); Blood Urea Nitrogen 12 mg/dL (9-16); Carbon Dioxide 23 mmol/L (22-29); Chloride 107 mmol/L (96-108); Creatinine Clr Calc Pharmacy 118.1; Estimated Glomerular Filt Rate > 60; Glucose Random 80 mg/dL (60-115); Lipase 15 U/L (8-78); Sodium 136 mmol/L (135-145); Total Protein 7.9 g/dL (6.5-8.0)
[2023-02-01 16:42] LABS: HCG Quantitative > 225000 mIU/mL
[2023-02-01 17:43] VITALS: BP 107/67; PULSE 90; RESP 18; TEMP 37; O2SAT 100
[2023-02-01 18:05] LABS: Appearance Urine Clear; Color Urine Yellow; Glucose Urine UA Negative (Negative); Leukocyte Esterase Urine Trace (Negative); Nitrite Urine Negative (Negative); PH 5.5 (5.0-9.0); UMIC TRIGGER UACC YES; Urine Blood Negative (Negative); Urine Ketones Negative (Negative); Urine Protein Negative (Neg-Trace)
[2023-02-01 18:08] LABS: Bacteria Urine None Seen (None Seen); Hyaline Casts Urine 0-2 /LPF (0-2); RBC Urine 0-2 /HPF (0-2); Squamous Epithelial Cell Urine 0-2 /HPF (0-2); WBC Urine 0-5 /HPF (0-5)
== END 2023-02-01 18:57 | disposition home or self-care (01) ==
PROVIDERS: Physician Assistant; Emergency Provider Emergency Medicine
DX: O20.9 Hemorrhage in early pregnancy, unspecified (principal); Z3A.13 13 weeks gestation of pregnancy; Z79.899 Other long term (current) drug therapy
CPT/HCPCS: 36415; 76801; 80053; 81001; 83690; 84702; 85025; 86850; 86900; 86901; 99284

== ENCOUNTER 2023-02-06 10:25 | Outpatient (AMB) | payer MEDICAID, SELFPAY ==
[2023-02-06 10:46] VITALS: BP 122/70; BMI 21.3
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
== END 2023-02-06 11:46 | disposition home or self-care (01) ==
LOC: HO.HWS 10:25
PROVIDERS: Visit Provider Advanced Practice Midwife
DX: O35.9XX0 Maternal care for (suspected) fetal abnormality and damage, unspecified, not applicable or unspecified (principal); O98.419 Viral hepatitis complicating pregnancy, unspecified trimester; B19.10 Unspecified viral hepatitis B without hepatic coma; O26.859 Spotting complicating pregnancy, unspecified trimester; O26.899 Other specified pregnancy related conditions, unspecified trimester; Z67.91 Unspecified blood type, Rh negative
CPT/HCPCS: 25942

== ENCOUNTER → 2023-02-06 10:25 | Outpatient (BNVA) | payer MEDICAID, SELFPAY | PROVIDERS: Visit Provider Advanced Practice Midwife | DX: Z34.81 Encounter for supervision of other normal pregnancy, first trimester (principal); Z3A.12 12 weeks gestation of pregnancy | CPT/HCPCS: 96372; 99212 ==

== ENCOUNTER 2023-02-21 10:39 | Outpatient (AMB) | payer MEDICAID, SELFPAY ==
[2023-02-21 10:52] VITALS: BP 110/68; BMI 21.5
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
== END 2023-02-21 11:21 | disposition home or self-care (01) ==
LOC: HO.HWSM 10:39
PROVIDERS: PCP Internal Medicine Geriatric Medicine; Visit Provider Advanced Practice Midwife
DX: O26.899 Other specified pregnancy related conditions, unspecified trimester (principal); Z67.91 Unspecified blood type, Rh negative; O35.9XX0 Maternal care for (suspected) fetal abnormality and damage, unspecified, not applicable or unspecified; Z36.3 Encounter for antenatal screening for malformations; O26.859 Spotting complicating pregnancy, unspecified trimester; O98.419 Viral hepatitis complicating pregnancy, unspecified trimester; B19.10 Unspecified viral hepatitis B without hepatic coma; F41.8 Other specified anxiety disorders
CPT/HCPCS: 25942

== ENCOUNTER → 2023-02-21 10:39 | Outpatient (BNVA) | payer MEDICAID, SELFPAY | PROVIDERS: PCP Internal Medicine Geriatric Medicine; Visit Provider Advanced Practice Midwife | DX: O26.892 Other specified pregnancy related conditions, second trimester (principal); O26.852 Spotting complicating pregnancy, second trimester; O98.412 Viral hepatitis complicating pregnancy, second trimester; B19.10 Unspecified viral hepatitis B without hepatic coma; O35.9XX0 Maternal care for (suspected) fetal abnormality and damage, unspecified, not applicable or unspecified; Z36.3 Encounter for antenatal screening for malformations; F41.8 Other specified anxiety disorders; Z67.91 Unspecified blood type, Rh negative; Z3A.15 15 weeks gestation of pregnancy | CPT/HCPCS: 99212 ==

== ENCOUNTER 2023-02-27 13:55 | Outpatient (REF) | payer MEDICAID, SELFPAY ==
[2023-02-27 16:01] LABS: Alanine Aminotransferase 38 U/L (0-31); Albumin Level 3.8 g/dL (3.5-5.0); Alkaline Phosphatase 57 U/L (39-117); Aspartate Amino Transferase 26 U/L (5-31); Bilirubin Direct < 0.2 mg/dL (0.0-0.5); Bilirubin Total 0.2 mg/dL (0.0-1.0); Total Protein 7.9 g/dL (6.5-8.0)
[2023-03-01 14:24] LABS: Hepatitis B Viral DNA Qn - cp NOT DETECTED Log IU/mL (NOT DETECTED); Hepatitis B Viral DNA Qn-IU/mL NOT DETECTED (NOT DETECTED)
[2023-03-01 20:33] LABS: TS Negative Control Passed; TS Panel A 0; TS Panel B 0; TS Positive Control Passed; TSpotTB Negative (Negative)
[2023-03-01 21:43] LABS: Hepatitis BE Antibody REACTIVE (NON-REACTIVE); Hepatitis BE Antigen NON-REACTIVE (NON-REACTIVE)
[2023-03-02 20:58] LABS: Hepatitis Delta Antibody NEGATIVE
[2023-03-05 01:09] LABS: FIB-ALT 34 U/L (6-29); FIB-Alpha-2-Macroglobulin 247 mg/dL (106-279); FIB-Apolipoprotein A1 225 mg/dL (101-198); FIB-GGT 32 U/L (3-50); FIB-Haptoglobin 156 mg/dL (43-212); FIB-Total Bilirubin 0.2 mg/dL (0.2-1.2); Liver Fibrosis Score 0.03; Liver Fibrosis Stage F0; Nec Inflam Act Grade A0; Nec Inflam Act Score 0.12
== END 2023-02-27 13:56 | disposition home or self-care (01) ==
LOC: HO.LAB 13:55
PROVIDERS: PCP Internal Medicine Geriatric Medicine; Visit Provider Internal Medicine
DX: O98.419 Viral hepatitis complicating pregnancy, unspecified trimester (principal); B19.10 Unspecified viral hepatitis B without hepatic coma
CPT/HCPCS: 36415; 80076; 81596; 86481; 86692; 86707; 87350; 87517; 99202

== ENCOUNTER 2023-02-27 13:55 | Outpatient (AMB) | payer MEDICAID, SELFPAY ==
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
[2023-02-27 14:13] VITALS: PULSE 88; O2SAT 99; BMI 22.3
== END 2023-02-27 14:47 | disposition home or self-care (01) ==
PROVIDERS: PCP Internal Medicine Geriatric Medicine; Referring Provider Internal Medicine Geriatric Medicine; Visit Provider Internal Medicine
DX: O98.419 Viral hepatitis complicating pregnancy, unspecified trimester (principal); B19.10 Unspecified viral hepatitis B without hepatic coma
CPT/HCPCS: 99203

== ENCOUNTER 2023-03-14 09:09 | Outpatient (AMB) | payer MEDICAID, SELFPAY ==
[2023-03-14 09:14] VITALS: BP 110/60; BMI 22.6
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
== END 2023-03-14 09:48 | disposition home or self-care (01) ==
LOC: HO.HWSM 09:09
PROVIDERS: PCP Internal Medicine Geriatric Medicine; Visit Provider Advanced Practice Midwife
DX: O26.899 Other specified pregnancy related conditions, unspecified trimester (principal); Z67.91 Unspecified blood type, Rh negative; O98.419 Viral hepatitis complicating pregnancy, unspecified trimester; B19.10 Unspecified viral hepatitis B without hepatic coma; Z34.92 Encounter for supervision of normal pregnancy, unspecified, second trimester
CPT/HCPCS: 25942

== ENCOUNTER → 2023-03-14 09:09 | Outpatient (BNVA) | payer MEDICAID, SELFPAY | PROVIDERS: PCP Internal Medicine Geriatric Medicine; Visit Provider Advanced Practice Midwife | DX: O26.892 Other specified pregnancy related conditions, second trimester (principal); O98.412 Viral hepatitis complicating pregnancy, second trimester; Z67.91 Unspecified blood type, Rh negative; Z3A.18 18 weeks gestation of pregnancy; B19.10 Unspecified viral hepatitis B without hepatic coma | CPT/HCPCS: 99212 ==

== ENCOUNTER 2023-03-27 13:23 | Outpatient (AMB) | payer MEDICAID, SELFPAY ==
[2023-03-27 13:29] VITALS: BP 110/60; BMI 23.2
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
== END 2023-03-27 14:17 | disposition home or self-care (01) ==
LOC: HO.HWSM 13:23
PROVIDERS: PCP Internal Medicine Geriatric Medicine; Visit Provider Advanced Practice Midwife
DX: O99.612 Diseases of the digestive system complicating pregnancy, second trimester (principal); N94.89 Other specified conditions associated with female genital organs and menstrual cycle; Z3A.19 19 weeks gestation of pregnancy
CPT/HCPCS: 25942

== ENCOUNTER → 2023-03-27 13:23 | Outpatient (BNVA) | payer MEDICAID, SELFPAY | PROVIDERS: PCP Internal Medicine Geriatric Medicine; Visit Provider Advanced Practice Midwife | DX: O99.891 Other specified diseases and conditions complicating pregnancy (principal); N94.89 Other specified conditions associated with female genital organs and menstrual cycle; Z3A.19 19 weeks gestation of pregnancy | CPT/HCPCS: 99212 ==

== ENCOUNTER 2023-04-11 10:10 | Outpatient (AMB) | payer MEDICAID, SELFPAY ==
[2023-04-11 10:18] VITALS: BP 118/68; BMI 24.0
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
== END 2023-04-11 11:26 | disposition home or self-care (01) ==
LOC: HO.HWSM 10:10
PROVIDERS: PCP Internal Medicine Geriatric Medicine; Visit Provider Advanced Practice Midwife
DX: Z34.92 Encounter for supervision of normal pregnancy, unspecified, second trimester (principal); O35.9XX0 Maternal care for (suspected) fetal abnormality and damage, unspecified, not applicable or unspecified
CPT/HCPCS: 25942

== ENCOUNTER → 2023-04-11 10:10 | Outpatient (BNVA) | payer MEDICAID, SELFPAY | PROVIDERS: PCP Internal Medicine Geriatric Medicine; Visit Provider Advanced Practice Midwife | DX: O35.9XX0 Maternal care for (suspected) fetal abnormality and damage, unspecified, not applicable or unspecified (principal); Z3A.22 22 weeks gestation of pregnancy | CPT/HCPCS: 99212 ==

== ENCOUNTER 2023-05-10 10:33 | Outpatient (AMB) | payer MEDICAID, SELFPAY ==
[2023-05-10 11:14] VITALS: BP 94/60; BMI 25.2
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
== END 2023-05-10 11:51 | disposition home or self-care (01) ==
LOC: HO.HWSM 10:33
PROVIDERS: PCP Internal Medicine Geriatric Medicine; Visit Provider Advanced Practice Midwife
DX: Z34.92 Encounter for supervision of normal pregnancy, unspecified, second trimester (principal); O35.9XX0 Maternal care for (suspected) fetal abnormality and damage, unspecified, not applicable or unspecified; O26.899 Other specified pregnancy related conditions, unspecified trimester; Z67.91 Unspecified blood type, Rh negative
CPT/HCPCS: 25942

== ENCOUNTER → 2023-05-10 10:33 | Outpatient (BNVA) | payer MEDICAID, SELFPAY | PROVIDERS: PCP Internal Medicine Geriatric Medicine; Visit Provider Advanced Practice Midwife | DX: O98.412 Viral hepatitis complicating pregnancy, second trimester (principal); O35.8XX0 Maternal care for other (suspected) fetal abnormality and damage, not applicable or unspecified; O28.1 Abnormal biochemical finding on antenatal screening of mother; B18.1 Chronic viral hepatitis B without delta-agent; Z3A.26 26 weeks gestation of pregnancy; Z67.11 Type A blood, Rh negative | CPT/HCPCS: 99212 ==

== ENCOUNTER 2023-05-13 13:04 | Outpatient (AMB) | payer MEDICAID, SELFPAY ==
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
== END 2023-05-13 13:48 | disposition home or self-care (01) ==
LOC: HO.HID 13:04
PROVIDERS: PCP Internal Medicine Geriatric Medicine; Visit Provider Internal Medicine
DX: O98.419 Viral hepatitis complicating pregnancy, unspecified trimester (principal); B19.10 Unspecified viral hepatitis B without hepatic coma
CPT/HCPCS: 99213

== ENCOUNTER → 2023-05-13 13:04 | Outpatient (BNVA) | payer MEDICAID, SELFPAY | PROVIDERS: PCP Internal Medicine Geriatric Medicine; Visit Provider Internal Medicine | DX: O98.419 Viral hepatitis complicating pregnancy, unspecified trimester (principal); B19.10 Unspecified viral hepatitis B without hepatic coma | CPT/HCPCS: 99212 ==

== ENCOUNTER 2023-05-14 09:49 | Outpatient (REF) | payer MEDICAID, SELFPAY ==
[2023-05-14 11:34] LABS: Hematocrit 40.6 % (37.0-47.0); Hemoglobin 13.6 g/dl (12.0-16.0); Mean Corpuscular HGB Conc 33.5 g/dl (31.0-35.0); Mean Corpuscular Volume 89.6 fL (80.0-98.0); Mean Platelet Volume 10.5 fL (9.4-12.3); Platelet Count 269 X10*3/uL (160-400); Red Blood Count 4.53 X10*6/uL (4.20-5.50); Red Cell Distribution Width 13.1 % (11.0-16.0); White Blood Count 7.7 X10*3/uL (4.8-10.8)
[2023-05-14 12:20] LABS: Glucose 1 Hour PP 50gm Dose 66 mg/dL (60-140)
[2023-05-15 07:29] LABS: Syphilis Screen Nonreactive (Nonreactive)
== END 2023-05-14 09:50 | disposition home or self-care (01) ==
LOC: HO.HHCL 09:49
PROVIDERS: Visit Provider Advanced Practice Midwife
DX: Z34.92 Encounter for supervision of normal pregnancy, unspecified, second trimester (principal)
CPT/HCPCS: 36415; 82950; 85027; 86780

== ENCOUNTER 2023-05-24 10:10 | Outpatient (AMB) | payer MEDICAID, SELFPAY ==
[2023-05-24 11:19] VITALS: BP 114/70; BMI 25.5
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
== END 2023-05-24 12:59 | disposition home or self-care (01) ==
PROVIDERS: PCP Internal Medicine Geriatric Medicine; Visit Provider Advanced Practice Midwife
DX: Z34.90 Encounter for supervision of normal pregnancy, unspecified, unspecified trimester (principal)
CPT/HCPCS: 25942

== ENCOUNTER → 2023-05-24 10:10 | Outpatient (BNVA) | payer MEDICAID, SELFPAY | PROVIDERS: PCP Internal Medicine Geriatric Medicine; Visit Provider Advanced Practice Midwife | DX: Z34.93 Encounter for supervision of normal pregnancy, unspecified, third trimester (principal) | CPT/HCPCS: 99212 ==

== ENCOUNTER 2023-05-31 11:24 | Emergency (ER) | payer MEDICAID, SELFPAY ==
[2023-05-31 11:34] VITALS: BP 138/54; PULSE 78; RESP 16; TEMP 37; O2SAT 98; BMI 26.0
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
== END 2023-05-31 17:05 | disposition left against medical advice (07) ==
LOC: HO.ED 15:54
PROVIDERS: Emergency Provider Emergency Medicine; PCP Internal Medicine Geriatric Medicine
DX: O99.891 Other specified diseases and conditions complicating pregnancy (principal); M25.531 Pain in right wrist; O99.350 Diseases of the nervous system complicating pregnancy, unspecified trimester; G56.01 Carpal tunnel syndrome, right upper limb; Z3A.00 Weeks of gestation of pregnancy not specified
CPT/HCPCS: 99281

== ENCOUNTER 2023-06-07 09:02 | Outpatient (REF) | payer MEDICAID, SELFPAY | END 2023-06-07 09:03 | disposition home or self-care (01) | LOC: HO.LAB 09:02 | PROVIDERS: PCP Internal Medicine Geriatric Medicine; Visit Provider Advanced Practice Midwife | DX: O26.893 Other specified pregnancy related conditions, third trimester (principal); G56.00 Carpal tunnel syndrome, unspecified upper limb; Z3A.30 30 weeks gestation of pregnancy; Z67.91 Unspecified blood type, Rh negative; Z79.899 Other long term (current) drug therapy | CPT/HCPCS: 86850; 96372; 99211; 99212 ==

== ENCOUNTER 2023-06-07 09:02 | Outpatient (AMB) | payer MEDICAID, SELFPAY ==
[2023-06-07 09:15] VITALS: BP 116/64; BMI 26.3
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
== END 2023-06-07 09:58 | disposition home or self-care (01) ==
LOC: HO.HWSM 09:02
PROVIDERS: PCP Internal Medicine Geriatric Medicine; Visit Provider Advanced Practice Midwife
DX: O26.899 Other specified pregnancy related conditions, unspecified trimester (principal); Z67.91 Unspecified blood type, Rh negative; G56.00 Carpal tunnel syndrome, unspecified upper limb; Z34.92 Encounter for supervision of normal pregnancy, unspecified, second trimester
CPT/HCPCS: 25942

== ENCOUNTER 2023-06-07 11:19 | Outpatient (AMB) | payer MEDICAID, SELFPAY ==
--- NOTE | 2023-06-07 11:46 | AM.OFFVISNUR ---
Intake Intake Visit Reasons: RhoGAM Allergies shellfish derived [SHELLFISH DERIVED] Allergy (Mild, Verified 06/07/23 09:20) HIVES shellfish Allergy (Unknown, Uncoded 06/07/23 09:20) swelling Coding
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
--- NOTE | 2023-06-07 12:00 | AM.OFFVISNUR ---
Intake Intake Visit Reasons: RhoGAM Allergies shellfish derived [SHELLFISH DERIVED] Allergy (Mild, Verified 06/07/23 09:20) HIVES shellfish Allergy (Unknown, Uncoded 06/07/23 09:20) swelling Nursing Note Alexsandra is here for RhoGAM injection. Pt tolerated injection well. No further questions. Pt departed office in good condition. Office Meds RhoGAM Ultra-Filtered PLUS 1,500 unit (300 mcg) intramuscular syringe Performing Provider: Bita Mcconnell CNM Performing Location: [facility] Administered by: Saida Hathaway on 06/07/23 12:01 Dose Route Admin Location Dispensed Lot Number Expiration Date [facility] Landscape Engineer 300 mcg IM left deltoid 1 ea [id number] 06/14/25 4807-8244-33 Stampt Coding Level of Care Code Established Pt Est Pt Level 1 (55565) Patient Type Established History Problem Focused Medical Decision Making Low Complexity Time Spent (min) 12 Assessment & Plan Assessment & Plan Orders: Orders AMB RhoGAM Injection Today O26.899 - Other specified related conditions, unspecified trimester, Z67.91 - Unspecified blood type, Rh negative
== END 2023-06-07 11:58 | disposition home or self-care (01) ==
LOC: HO.HWS 11:19
PROVIDERS: PCP Internal Medicine Geriatric Medicine; Visit Provider Advanced Practice Midwife
DX: O26.899 Other specified pregnancy related conditions, unspecified trimester (principal); Z67.91 Unspecified blood type, Rh negative

== ENCOUNTER 2023-06-14 08:14 | Outpatient (REF) | payer MEDICAID, SELFPAY | END 2023-06-14 08:15 | disposition home or self-care (01) | LOC: HO.HOSX 08:14 | PROVIDERS: Visit Provider Physician Assistant | DX: M25.531 Pain in right wrist (principal); R20.0 Anesthesia of skin; R20.2 Paresthesia of skin | CPT/HCPCS: 99212 ==

== ENCOUNTER 2023-06-14 10:01 | Outpatient (AMB) | payer MEDICAID, SELFPAY ==
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
[2023-06-14 10:13] VITALS: BMI 26.3
== END 2023-06-14 10:42 | disposition home or self-care (01) ==
PROVIDERS: PCP Internal Medicine Geriatric Medicine; Visit Provider Physician Assistant
DX: G56.00 Carpal tunnel syndrome, unspecified upper limb (principal)
CPT/HCPCS: 99203

== ENCOUNTER 2023-06-21 10:07 | Outpatient (AMB) | payer MEDICAID, SELFPAY ==
[2023-06-21 10:23] VITALS: BP 136/72; BMI 26.8
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
== END 2023-06-21 13:45 | disposition home or self-care (01) ==
LOC: HO.HWSM 10:08
PROVIDERS: PCP Internal Medicine Geriatric Medicine; Visit Provider Advanced Practice Midwife
DX: G56.00 Carpal tunnel syndrome, unspecified upper limb (principal); O26.899 Other specified pregnancy related conditions, unspecified trimester; Z67.91 Unspecified blood type, Rh negative; Z34.93 Encounter for supervision of normal pregnancy, unspecified, third trimester
CPT/HCPCS: 25942

== ENCOUNTER → 2023-06-21 10:07 | Outpatient (BNVA) | payer MEDICAID, SELFPAY | PROVIDERS: PCP Internal Medicine Geriatric Medicine; Visit Provider Advanced Practice Midwife | DX: O99.820 Streptococcus B carrier state complicating pregnancy (principal); O99.353 Diseases of the nervous system complicating pregnancy, third trimester; G56.01 Carpal tunnel syndrome, right upper limb; O36.0930 Maternal care for other rhesus isoimmunization, third trimester, not applicable or unspecified; Z3A.32 32 weeks gestation of pregnancy | CPT/HCPCS: 99212 ==

== ENCOUNTER 2023-07-05 13:19 | Outpatient (AMB) | payer MEDICAID, SELFPAY ==
[2023-07-05 13:27] VITALS: BP 120/72; BMI 27.4
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
== END 2023-07-05 13:59 | disposition home or self-care (01) ==
LOC: HO.HWS 13:19
PROVIDERS: PCP Internal Medicine Geriatric Medicine; Visit Provider Advanced Practice Midwife
DX: Z34.90 Encounter for supervision of normal pregnancy, unspecified, unspecified trimester (principal)
CPT/HCPCS: 25942; 59426

== ENCOUNTER → 2023-07-05 13:19 | Outpatient (BNVA) | payer MEDICAID, SELFPAY | PROVIDERS: PCP Internal Medicine Geriatric Medicine; Visit Provider Advanced Practice Midwife | DX: O99.353 Diseases of the nervous system complicating pregnancy, third trimester (principal); G56.00 Carpal tunnel syndrome, unspecified upper limb; O36.5930 Maternal care for other known or suspected poor fetal growth, third trimester, not applicable or unspecified; Z3A.34 34 weeks gestation of pregnancy | CPT/HCPCS: 99212 ==

== ENCOUNTER 2023-07-09 11:06 | Outpatient (AMB) | payer MEDICAID, SELFPAY ==
--- NOTE | 2023-07-09 11:26 | AM.OFFVISNUR ---
Intake Intake Visit Reasons: TDAP Allergies shellfish derived [SHELLFISH DERIVED] Allergy (Mild, Verified 07/05/23 13:28) HIVES shellfish Allergy (Unknown, Uncoded 07/05/23 13:28) swelling Nursing Note Sarah is here today for her TDAP injection. Pt tolerated well. Follow up for next NAY as scheduled. Immunizations Boostrix Tdap 2.5 Lf unit-8 mcg-5 Lf/0.5 mL intramuscular syringe Performing Provider: Bita Mcconnell CNM Performing Location: [facility] Administered by: Stefanie Montero LPN on 07/09/23 11:45 Dose Route Admin Location Dispensed Lot Number Expiration Date [facility] Hat And Cap Opener 0.5 mL IM Right Deltoid 0.5 mL [id number] 11/20/24 [id number] [employer] VIS Given Date VIS Provided VIS Publication Date 07/09/23 Single Vaccine 20 Eligibility Eligibility Date Funding Source Not [facility] Eligible 07/09/23 Private Coding Level of Care Code Established Pt Est Pt Level 1 (46080) Patient Type Established History Problem Focused Exam Problem Focused Medical Decision Making Straight Forward Time Spent (min) 20 Assessment & Plan Assessment & Plan Orders: Orders TDaP Immunization Today Z34.93 - Encounter for supervision of normal , unspecified, third trimester
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
== END 2023-07-09 14:07 | disposition home or self-care (01) ==
LOC: HO.HWS 11:06
PROVIDERS: PCP Internal Medicine Geriatric Medicine; Visit Provider Advanced Practice Midwife
DX: Z34.93 Encounter for supervision of normal pregnancy, unspecified, third trimester (principal)

== ENCOUNTER → 2023-07-09 11:06 | Outpatient (BNVA) | payer MEDICAID, SELFPAY | PROVIDERS: PCP Internal Medicine Geriatric Medicine; Visit Provider Advanced Practice Midwife | DX: Z34.93 Encounter for supervision of normal pregnancy, unspecified, third trimester (principal) | CPT/HCPCS: 90471; 90715; 99211 ==

== ENCOUNTER 2023-07-18 10:12 | Outpatient (AMB) | payer MEDICAID, SELFPAY ==
[2023-07-18 10:13] VITALS: BP 126/78; BMI 27.3
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
== END 2023-07-18 10:45 | disposition home or self-care (01) ==
LOC: HO.HWSM 10:12
PROVIDERS: PCP Internal Medicine Geriatric Medicine; Visit Provider Advanced Practice Midwife
DX: Z34.93 Encounter for supervision of normal pregnancy, unspecified, third trimester (principal); G56.00 Carpal tunnel syndrome, unspecified upper limb
CPT/HCPCS: 25942

== ENCOUNTER → 2023-07-18 10:12 | Outpatient (BNVA) | payer MEDICAID, SELFPAY | PROVIDERS: PCP Internal Medicine Geriatric Medicine; Visit Provider Advanced Practice Midwife | DX: O99.343 Other mental disorders complicating pregnancy, third trimester (principal); O98.413 Viral hepatitis complicating pregnancy, third trimester; B19.10 Unspecified viral hepatitis B without hepatic coma; O35.19X0 Maternal care for (suspected) chromosomal abnormality in fetus, other chromosomal abnormality, not applicable or unspecified; Z3A.36 36 weeks gestation of pregnancy; Z67.11 Type A blood, Rh negative | CPT/HCPCS: 99212 ==

== ENCOUNTER 2023-08-22 10:23 | Outpatient (REF) | payer MEDICAID, SELFPAY ==
[2023-08-22 12:16] LABS: HBsAGNum1 1.71 S/CO (0.00-0.99)
[2023-08-22 12:30] LABS: TSH reflex Free T4 1.03 uIU/mL (0.32-4.0)
[2023-08-22 13:02] LABS: HBsAGNum2 Reactive; HBsAGNum3 Reactive; Hepatitis B Surface Antigen Retest CNFM (Negative)
[2023-08-23 14:48] LABS: Hepatitis B Viral DNA Qn - cp NOT DETECTED Log IU/mL (NOT DETECTED); Hepatitis B Viral DNA Qn-IU/mL NOT DETECTED (NOT DETECTED)
[2023-08-26 12:59] LABS: HBsAG NON-REACTIVE
== END 2023-08-22 10:24 | disposition home or self-care (01) ==
LOC: HO.HHCL 10:23
PROVIDERS: Visit Provider Internal Medicine Geriatric Medicine
DX: R76.8 Other specified abnormal immunological findings in serum (principal); F32.89 Other specified depressive episodes
CPT/HCPCS: 36415; 84443; 87340; 87517

== ENCOUNTER 2023-10-29 19:39 | Emergency (ER) | payer MEDICAID, SELFPAY ==
[2023-10-29 19:55] VITALS: BP 134/61; PULSE 72; RESP 18; TEMP 36.8; O2SAT 100; BMI 25.1
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
[2023-10-29] MEDS: 0.9 % Sodium Chloride 1,000 ML 999 ML IVCONT (21:15)
[2023-10-29] MEDS: Famotidine/PF 20 MG/2 ML VIAL IVPUSH (21:15)
[2023-10-29] MEDS: diphenhydrAMINE HCL 50 MG/ML VIAL IVPUSH (21:16)
[2023-10-29] MEDS: methylPREDNISolone Sod Succ 125 MG/2 ML VIAL IVPUSH (21:16)
[2023-10-29 22:08] VITALS: BP 105/68; PULSE 67; RESP 16; TEMP 36.3; O2SAT 100
[2023-10-29 23:55] VITALS: BP 105/68; PULSE 67; RESP 16; TEMP 36.3; O2SAT 100
== END 2023-10-29 23:55 | disposition home or self-care (01) ==
PROVIDERS: Emergency Provider Emergency Medicine; PCP Internal Medicine Geriatric Medicine
DX: L27.2 Dermatitis due to ingested food (principal); Z79.899 Other long term (current) drug therapy
CPT/HCPCS: 96361; 96374; 96375; 99284; 99285; J1200; J2919

== ENCOUNTER 2024-03-27 13:48 | Outpatient (REF) | payer MEDICAID, SELFPAY ==
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
--- OUTSIDE RECORDS SUMMARY | 2024-03-27 13:52 | XMS_ITS | Encounter Summary ---
Author Organization [employer] Address [address] [facility] 7t [place] [address] Care Team Providers Care Bridge Attacher Name Role Phone Name, Rishi NAVARRETE Primary Care Provider [phone] Reason for Visit * Reason Onset Date Comments work note 08/07/2022 Encounter Details Date Type Department Care Team (Late st Contact Info) Description 08/07/2022 Telephone [facility] ADULT DENTAL [address] [place] [address] Christian Reynaga, EDWINS [address] [place] [address] work note Social History Tobacco Use Types Packs/Day Years Used Date Smoking Tobacco: Former Smokeless Tobacco: Never Alcohol Use Standard Drinks/Week Comments Never 0 (1 standard drink = 0.6 oz pur e alcohol) Depression Answer Date Recorded Patient Health Questionnaire-9 Score 9 06/08/2022 Depression Answer Date Recorded Patient Health Questionnaire-2 Score 4 06/08/2022 Comments No Sex and Gender Information Value Date Recorded Sex Assigned at Female 12/25/2021 10:29 AM EDT Legal Sex Female 10:29 AM EDT Gender Identity Female 12/25/2021 10:29 AM EDT Sexual Orientation Straight 12/25/2021 10 :29 AM EDT COVID-19 Exposure Response Date Recorded In the last 10 days, have yo u been in contact with someone who was confirmed or suspected to have Coronavirus/COVID-19? No / Unsure 08/06/2022 8:44 AM EDT documented as of this encounter Miscellaneous Notes * Telephone Encounter - Tangela Hernández - 08/07/2022 11:12 AM EDT Patient came in yesterday for extraction and received a note for yesterdays date. This morning she woke up swollen and in a lot of pain and unable to go to work. Requesting note for today due to swelling and pain and to avoid suspension from work Dr documented in this encounter Plan of Treatment Upcoming Encounters Date Type Department Care Team (Late st Contact Info) Description 06/10/2024 9:45 AM EDT Office Visit [facility] MEDICINE [address] [place] [phone] Name, MD Rishi [address] [place] [address] documented as of this encounter Visit Diagnoses Not on filedocumented in this encounter Additional Health Concerns Assessment Noted Time PHQ-9 Depression Total Score: 9 06/09/19 23 10:53 AM EDT documented as of this encounter Care Teams Bridge Attacher Relationship Specialty Start Date End Date Name, MD Rishi [address] [place] [address] PCP - General Family Medicine 10/10/16 documented as of this encounter
--- OUTSIDE RECORDS SUMMARY | 2024-03-27 13:52 | XMS_ITS | Encounter Summary ---
Author Organization [employer] [facility] Address [address] [place] [address] [address] [place] [address] Care Team Providers Care Auto Damage Insurance Appraiser Name Role Phone Name, Rishi NAVARRETE Primary Care Provider [phone] Encounter Details Date Type Department Care Team (Late st Contact Info) Description 03/23/2022 Telephone [facility] MEDICINE [address] [place] [phone] Rishi Rosales MD [address] [place] [address] Social History Tobacco Use Types Packs/Day Years Used Date Smoking Tobacco: Never Assessed Comments Unknown Sex and Gender Information Value Date Recorded Sex Assigned at Female 12/25/2021 10:29 AM EDT Legal Sex Female 10:29 AM EDT Gender Identity Female 12/25/2021 10:29 AM EDT Sexual Orientation Straight 12/25/2021 10 :29 AM EDT documented as of this encounter Plan of Treatment Upcoming Encounters Date Type Department Care Team (Late st Contact Info) Description 06/10/2024 9:45 AM EDT Office Visit [facility] MEDICINE [address] [place] [phone] Rishi Rosales MD [address] [place] [phone] documented as of this encounter Visit Diagnoses Not on filedocumented in this encounter Care Teams Auto Damage Insurance Appraiser Relationship Specialty Start Date End Date Rishi Rosales MD [address] [place] [phone] PCP - General Family Medicine 10/10/16 documented as of this encounter
--- OUTSIDE RECORDS SUMMARY | 2024-03-27 13:52 | XMS_ITS | Encounter Summary ---
Author Organization [employer] Address [address] [place] [address] 7[address] [place] [address] Care Team Providers Care Towboat Pilot Name Role Phone Name, Rishi NAVARRETE Primary Care Provider [phone] Encounter Details Date Type Department Care Team (Latest Contact Info) Description 11/01/2021 Abstract [facility] CONVERSIONS Dental, Provider, DDS Social History Tobacco Use Types Packs/Day Years [...] Upcoming Encounters Date Type Department Care Team ( st Contact Info) Description 06/10/2024 9:45 AM EDT Office Visit [facility] MEDICINE [address] [place] [address] Name, MD Rishi [address] [place] [address] documented as of this encounter Visit Diagnoses Not on filedocumented in this encounter Care Teams Towboat Pilot Relationship Specialty Start Date End Date Name, MD Rishi [address] [place] [address] PCP - General Family Medicine 10/10/16 documented as of this encounter
--- OUTSIDE RECORDS SUMMARY | 2024-03-27 13:52 | XMS_ITS | Encounter Summary ---
Author Organization [employer] Address [address] [facility] 7t [place] [address] Care Team Providers Care Computer Typesetter Keyliner Name Role Phone Name, Rishi NAVARRETE Primary Care Provider [phone] Reason for Visit * Reason Onset Date Comments Nurse Triage 03/26/2024 Encounter Details Date Type Department Care Team ([facility] st Contact Info) Description 03/26/2024 Telephone [facility] MEDICINE [address] [place] [address] Name, MD Rishi [address] [place] [address] Nurse Triage Social History Tobacco Use Types Packs/Day Years Used Date Smoking Tobacco: Former Passive Smoke Exposure: Never Smokeless Tobacco: Never Alcohol Use Standard Drinks/Week [...] encounter Miscellaneous Notes * Telephone Encounter - Kathryn Price RN - 03/26/2024 10:30 AM EST Called pt. Via [employer] seismic interpreter [id number] [place]. Pt. States that she has been having some stabbing pain in her ovaries. Pt. States that she has a white discharge. Pt. Denies thoughts of STI. Pt. Unsure ifit yeast. Pt. States that she lost her baby at 30 weeks x 6 months ago as an FYI. No pain with urination and no blood in urine. Protocol Used: Abdominal Pain - Female (Adult) Protocol-Based Disposition: See in Office or Video Visit Today- Pt. States at work until 7pm tonight so she cannot come today. Appt made for tomorrow at 10am with Blue team provider. Video visit offer not recorded Positive Triage Questions: * Unusual vaginal discharge * Patient wants to be seen * Mild pain (e.g., does not interfere with normal activities) and pain comes and goes (cramps) lasts > 48 hours (Exception: This same abdominal pain is a chronic symptom recurrent or ongoing AND present > 4 weeks.) * All higher-acuity triage questions were negative Care Advice Discussed: * Rest * Drink Clear Fluids * Telephone Encounter - Sim Otis - 03/26/2024 10:17 AM EST Symptom: Abdominal Pain - Female - Not Outcome: Talk to a nurse or provider within 15 minutes Reason: Severe pain now Please contact pt at [phone]. (Slovak Speaker) documented in this encounter Plan of Treatment Upcoming Encounters Date Type Department Care Team (Late st Contact Info) Description 06/10/2024 9:45 AM EDT Office Visit [facility] MEDICINE [address] [place] [address] Name, MD Rishi [address] [place] [address] documented as of this encounter Visit Diagnoses Not on filedocumented in this encounter Additional Health Concerns Assessment Noted Time PHQ-9 Depression Total Score: 19 024 9:36 AM EDT documented as of this encounter Care Teams Computer Typesetter Keyliner Relationship Specialty Start Date End Date Name, MD Rishi [address] [place] [phone] PCP - General Family Medicine 10/10/16 documented as of this encounter
--- OUTSIDE RECORDS SUMMARY | 2024-03-27 13:52 | XMS_ITS | Encounter Summary ---
Author Organization [employer] Address [address] [facility] [address] [place] [address] Care Team Providers Care Fuller Brush Worker Name Role Phone Name, Rishi NAVARRETE Primary Care Provider [phone] Reason for Visit * Reason Onset Date Comments appt/ 01/08/2023 Encounter Details Date Type Department Care Team ([facility] st Contact Info) Description 01/08/2023 Telephone [facility] ADULT DENTAL [address] [place] [address] Julia Bullock DDS [address] [place] [address] appt/ Social History Tobacco Use Types Packs/Day Years Used Date Smoking Tobacco: Former Smokeless Tobacco: Never Alcohol Use Standard Drinks/Week Comments Never 0 (1 standard drink = 0.6 oz pur e alcohol) Depression Answer Date Recorded Patient Health Questionnaire-9 Score 9 06/08/2022 Housing Stability Answer Date Recorded What is your housing situation today? I have mariah coates 12/02/[address] you li ve. Do you have problems with any of the following? Pests such as bugs, ants, or mice 12/02/2022 Food Insecurity Answer Date Recorded Within the past 12 months, y ou worried that your food would run out before you got money to buy more: Not on file 12/10/2022 Within the past 12 months,th e food you bought just didn't last and you didn't have enough money to get more: Never True Transportation Answer Date Recorded In the past [...] encounter Miscellaneous Notes * Telephone Encounter - Julia Bullock DDS - 01/08/2023 1:08 PM EST Justin Honeycutt, in order to complete this tx, the pt has to be at least 12 weeks and treatment absolutely necessary because of severe symptoms. Also, pt needs a clearance form her ELECTROCARDIOGRAPH TECHNICIAN for dental treatments, because multiple x-rays will be taken. Please inform the pt that if the tooth is asymptomatic, the best tie to have these teeth treatment is after giving . Thanks, Dr. Roman * Telephone Encounter - Tangela Hernández - 01/08/2023 11:29 AM EST Patient is trying to reschedule her RCT appt with you. She clarified that she is currently 9 weeks . I did not call the office for an appt as to clear with provider whether or not this treatment can be done while documented in this encounter Plan of Treatment Upcoming Encounters Date Type Department Care Team (Late st Contact Info) Description 06/10/2024 9:45 AM EDT Office Visit [facility] MEDICINE [address] [place] [address] Name, MD Rishi [address] [place] [address] documented as of this encounter Visit Diagnoses Not on filedocumented in this encounter Additional Health Concerns Assessment Noted Time PHQ-9 Depression Total Score: 9 06/09/19 23 10:53 AM EDT documented as of this encounter Care Teams Fuller Brush Worker Relationship Specialty Start Date End Date Name, MD Rishi [address] [place] [address] PCP - General Family Medicine 10/10/16 documented as of this encounter
--- OUTSIDE RECORDS SUMMARY | 2024-03-27 13:52 | XMS_ITS | Encounter Summary ---
Author Organization [employer] Address [address] [facility] 7t [place] [address] Care Team Providers Care Road Hogger Operator Name Role Phone Name, Rishi NAVARRETE Primary Care Provider Encounter Details Date Type Department Care Team ([facility] st Contact Info) Description 03/27/2024 10:00 AM EST Office Visit [facility] MEDICINE [address] [place] [address] Carmencita Tomlinson FNP [address] [place] [address] Vaginal discharge Social History Tobacco Use Types Packs/Day Years [...] AM EDT documented as of this encounter Last Filed Vital Signs Vital Sign Reading Time Taken Comments Blood Pressure 110/70 03/27/2024 10:34 AM EST Pulse 80 03/27/2024 10:34 AM EST Temperature 36.2 ??C (97.1 ??F) 03/27/2024 10:[address] Respiratory Rate 20 03/27/2024 10:34 AM EST Oxygen Saturation - - Inhaled Oxygen Concentration - - Weight 61.3 kg (135 lb 3.2 oz) 03/27/2024 10:34 AM EST Height 167.6 cm (5' 6 ) 03/27/2024 10:34 AM EST Body Mass Index 21.82 03/27/2024 10:34 AM EST documented in this encounter Plan of Treatment Upcoming Encounters Date Type Department Care Team (Late st Contact Info) Description 06/10/2024 9:45 AM EDT Office Visit [facility] MEDICINE [address] [place] [id number] Name, MD Rishi [address] [place] [address] Scheduled Orders Name Type Priority Associated Diagnoses Orde r Schedule Chlamydia/N. Gonorrhoeae RNA, TMA, Urogenitial Microbiology Routine Vaginal discharge Ordered: 03/27/2024 Bacterial Vaginosis Panel Microbiology Routine Vaginal discharge Ordered: 03/27/2024 Chlamydia/N. Gonorrhoeae RNA, TMA, Urogenitial Microbiology Routine Vaginal discharge Ordered: 03/27/2024 documented as of this encounter Procedures Procedure Name Priority Date/Time Associated Diagnosis Comments POCT URINALYSIS DIPSTICK Routine 03/27/2024 10:41 AM EST Vaginal discharge documented in this encounter Results * (ABNORMAL) POCT Urinalysis (03/27/2024 10:41 AM EST) Color, UA Yellow Clarity, UA Clear Glucose, [...] 03/27/2024 10:4 1 AM EST Carmencita Tomlinson WATER TRUCK DRIVER POINT OF CARE TEST ENTER/EDIT ORDERABLES Final Result documented in this encounter Visit Diagnoses Diagnosis Vaginal discharge Leukorrhea, not specified as infective documented in this encounter Additional Health Concerns Assessment Noted Time PHQ-9 Depression Total Score: 19 024 9:36 AM EDT documented as of this encounter Care Teams Road Hogger Operator Relationship Specialty Start Date End Date Name, MD Rishi [address] [place] [address] PCP - General Family Medicine 10/10/16 documented as of this encounter
--- OUTSIDE RECORDS SUMMARY | 2024-03-27 13:52 | XMS_ITS | Encounter Summary ---
Author Organization [employer] Address [address] [facility] 7[address] [place] [address] Care Team Providers Care Carton Liner Name Role Phone Name, Rishi NAVARRETE Primary Care Provider [phone] Reason for Visit * Reason On[place] Date Comments Created in error 10/21/2023 Encounter Details Date Type Department Care Team ([facility] st Contact Info) Description 10/21/2023 Telephone [facility] [address] [place] [address] Name, MD Rishi [address] [place] [address] Created in error Social History Tobacco Use Types Packs/Day Years Used Date Smoking Tobacco: Former Smokeless Tobacco: Never Alcohol Use Standard Drinks/Week Comments Never 0 (1 standard drink = 0.6 oz pur e alcohol) Depression Answer Date Recorded Patient Health Questionnaire-9 Score 12 08/22/2023 Patient Health Questionnaire-9 Score 12 08/22/2023 Last PHQ-9: Questionnaire Data Not on file 0 08/22/2023 Housing Stability Answer Date Recorded What is [...] Date Recorded Patient Health Questionnaire-2 Score 4 08/22/2023 Comments No Sex and Gender Information Value [...] Description 06/10/2024 9:45 AM EDT Office Visit [facility] [address] [place] [address] Name, MD Rishi [address] [place] [address] documented as of this encounter Visit Diagnoses Not on filedocumented in this encounter Additional Health Concerns Assessment Noted Time PHQ-9 Depression Total Score: 12 024 9:29 AM EDT documented as of this encounter Care Teams Carton Liner Relationship Specialty Start Date End Date Name, MD Rishi [address] [place] [address] PCP - General Family Medicine 10/10/16 documented as of this encounter
--- OUTSIDE RECORDS SUMMARY | 2024-03-27 13:52 | XMS_ITS | Encounter Summary ---
Author Organization [employer] Address [address] [place] [address] 7[address] [place] [address] Care Team Providers Care Paver Layer Name Role Phone Name, Rishi NAVARRETE Primary Care Provider [phone] Encounter Details Date Type Department Care Team (Latest Contact Info) Description 07/10/2018 Abstract [facility] CONVERSIONS Dental, Provider, DDS Social History Tobacco [...] Description 06/10/2024 9:45 AM EDT Office Visit [facility] MEDICINE [address] [place] [address] Name, MD Rishi [address] [place] [address] documented as of this encounter Visit Diagnoses Not on filedocumented in this encounter Care Teams Paver Layer Relationship Specialty Start Date End Date Name, MD Rishi [address] [place] [address] PCP - General Family Medicine 10/10/16 documented as of this encounter
[2024-03-27 15:24] LABS: Bacterial Vaginosis PCR NEGATIVE (Negative); Candida Group PCR NOT DETECTED (Not Detect); Candida glab krusei PCR NOT DETECTED (Not Detect); Trichomonas vaginalis PCR NOT DETECTED (Not Detect)
[2024-03-27 16:20] LABS: CT PCR NOT DETECTED (Not Detect.); NG PCR NOT DETECTED (Not Detect.)
== END 2024-03-27 13:49 | disposition home or self-care (01) ==
LOC: HO.HHCLNP 13:48
PROVIDERS: Visit Provider Nurse Practitioner Family
DX: N89.8 Other specified noninflammatory disorders of vagina (principal)
CPT/HCPCS: 81515; 87491; 87591

== ENCOUNTER 2024-05-16 10:53 | Emergency (ER) | payer MEDICAID, SELFPAY ==
--- NOTE | ~2024-05-16 | US_ITS ---
CLINICAL HISTORY: confirm IUP US OB 1st trimester transabdominal Comparison: None Findings: Single intrauterine . CRL: 1.92 cm. EGA: 8 weeks 4 days. ISABELLA: 12/22/2024. Previously established gestational age: 8 weeks 3 days. Prominent uterine vasculature noted. Could consider pelvic congestion. Normal yolk sac . Cardiac activity: 163 bpm. No subchorionic bleed. Bilateral ovaries are unremarkable. IMPRESSION: Single intrauterine estimated 8 weeks 4 days gestational age by today's ultrasound criteria. This document has been electronically signed by: Dasia Singh MD on 05/16/2024 15:25:36
[2024-05-16 10:57] VITALS: BP 118/68; PULSE 80; RESP 18; TEMP 37; O2SAT 98
[2024-05-16 11:49] LABS: MANUAL DIFF FLAG NO
[2024-05-16 11:50] LABS: Basophils Percent Auto 0.3 % (0-2); Eosinophils Absolute Auto 0.3 X10*3/uL (0.0-0.4); Eosinophils Percent Auto 4.8 % (0-4); Hematocrit 38.7 % (37.0-47.0); Hemoglobin 13.3 g/dl (12.0-16.0); Imm Gran Abs Auto 0.02 X10*3/uL (0.00-0.03); Imm Gran Pct Auto 0.3 % (0.0-0.4); Lymphocytes Absolute Auto 0.6 X10*3/uL (1.2-4.9); Lymphocytes Percent Auto 8.7 % (20-40); Mean Corpuscular HGB Conc 34.4 g/dl (31.0-35.0); Mean Corpuscular Hemoglobin 29.3 pg (27.0-33.0); Mean Corpuscular Volume 85.2 fL (80.0-98.0); Mean Platelet Volume 9.5 fL (9.4-12.3); Monocytes Absolute Auto 0.3 X10*3/uL (0.1-1.2); Monocytes Percent Auto 4.1 % (2-11); Neutrophils Absolute Auto 5.7 x10*3/uL (2.0-8.3); Neutrophils Percent Auto 81.8 % (45-73); Platelet Count 279 X10*3/uL (160-400); Red Blood Count 4.54 X10*6/uL (4.20-5.50); Red Cell Distribution Width 12.7 % (11.0-16.0)
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
[2024-05-16 12:15] LABS: Alanine Aminotransferase 44 U/L (0-31); Alkaline Phosphatase 46 U/L (39-117); Anion Gap 10 (12-20); Aspartate Amino Transferase 27 U/L (5-31); Bilirubin Total 0.5 mg/dL (0.0-1.0); Blood Urea Nitrogen 10 mg/dL (9-16); Calcium 8.9 mg/dL (8.4-10.2); Carbon Dioxide 22 mmol/L (22-29); Chloride 107 mmol/L (96-108); Creatinine Clr Calc Pharmacy 133.6; Estimated Glomerular Filt Rate > 60; Glucose Random 87 mg/dL (60-115); Potassium 4.2 mmol/L (3.3-5.1); Sodium 135 mmol/L (135-145); Total Protein 7.6 g/dL (6.5-8.0)
[2024-05-16 13:07] LABS: Influenza A PCR NEGATIVE (Negative); Influenza B PCR NEGATIVE (Negative); Resp Syncy Virus RNA Qual PCR NEGATIVE (Negative); SARS COV2 PCR INHOUSE NEGATIVE (Negative)
[2024-05-16] MEDS: 0.9 % Sodium Chloride 1,000 ML 999 ML IV (13:33)
[2024-05-16] MEDS: ondansetron HCL 4 MG/2 ML VIAL IVPUSH (13:36)
[2024-05-16 15:25] VITALS: BP 118/68; PULSE 80; RESP 18; TEMP 37; O2SAT 98
== END 2024-05-16 15:25 | disposition home or self-care (01) ==
PROVIDERS: Emergency Provider Emergency Medicine; PCP Internal Medicine Geriatric Medicine
DX: O21.9 Vomiting of pregnancy, unspecified (principal); Z3A.08 8 weeks gestation of pregnancy; Z03.818 Encounter for observation for suspected exposure to other biological agents ruled out
CPT/HCPCS: 0241U; 76801; 80053; 84702; 85025; 96361; 96374; 99283; 99284; J2405

== ENCOUNTER → 2024-05-16 13:57 | Outpatient (BNV) | payer MEDICAID, SELFPAY | PROVIDERS: Emergency Provider Emergency Medicine; PCP Internal Medicine Geriatric Medicine; Visit Provider Radiology Diagnostic Radiology | DX: O21.8 Other vomiting complicating pregnancy (principal) | CPT/HCPCS: 76801 ==

== ENCOUNTER 2024-07-27 13:09 | Outpatient (REF) | payer MEDICAID, SELFPAY ==
--- OUTSIDE RECORDS SUMMARY | 2024-07-27 14:12 | XMS_ITS | Encounter Summary ---
Author Organization [employer] Address [address] [place] [address] 7[address] [place] [address] Care Team Providers Care Insurance Claims Assistant Name Role Phone Name, Rishi NAVARRETE Primary Care Provider [phone] Reason for Visit * Reason [place] Date Comments appt/ 01/08/2023 Encounter Details Date Type Department Care Team ([facility] Contact Info) Description 01/08/2023 Telephone [facility]ULT D[facility]AL [address] [place] [address] Julia Bullock, EDWINS [address] [place] [address] appt/ Social History Tobacco Use Types Packs/Day [...] Also, pt needs a clearance form her DATA ANALYTICS ANALYST for dental treatments, because multiple x-rays will [...] Care Team (Late st Contact Info) Description 09/08/2024 9:30 AM EDT Office Visit [facility] [address] [place] [address] Name, MD Rishi [address] [place] [address] documented as of this encounter Visit Diagnoses Not on filedocumented in this encounter Additional Health Concerns Assessment Noted Time PHQ-9 Depression Total Score: 9 06/09/19 23 10:53 AM EDT documented as of this encounter Care Teams Insurance Claims Assistant Relationship Specialty Start Date End Date Name, MD Rishi [address] [place] [address] PCP - General Family Medicine 10/10/16 documented as of this encounter
[2024-07-27 16:37] LABS: Bacterial Vaginosis PCR NEGATIVE (Negative); Candida Group PCR NOT DETECTED (Not Detect); Candida glab krusei PCR NOT DETECTED (Not Detect); Trichomonas vaginalis PCR NOT DETECTED (Not Detect)
[2024-07-27 17:08] LABS: CT PCR NOT DETECTED (Not Detect.); NG PCR NOT DETECTED (Not Detect.)
== END 2024-07-27 13:10 | disposition home or self-care (01) ==
LOC: HO.HHCLNP 13:09
PROVIDERS: Visit Provider Emergency Medicine
DX: R39.9 Unspecified symptoms and signs involving the genitourinary system (principal)
CPT/HCPCS: 81515; 87086; 87088; 87186; 87491; 87591

== ENCOUNTER 2024-08-03 02:29 | Emergency (ER) | payer MEDICAID, SELFPAY ==
--- NOTE | ~2024-08-03 | US_ITS ---
CLINICAL HISTORY: Thigh pain Venous duplex ultrasound right lower extremity Comparison: None Findings: The visualized deep veins are fully compressible with normal Doppler color flow and spectral tracings. No popliteal cyst. IMPRESSION: 1. Negative for right lower extremity deep vein thrombosis. This document has been electronically signed by: Yosef Glynn MD on 08/03/2024 05:39:44
[2024-08-03 02:44] VITALS: BP 104/55; PULSE 79; RESP 16; TEMP 36.1; O2SAT 99; BMI 23.4
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
--- NOTE | 2024-08-03 04:05 | PC.NURSE ---
bedside u/s done by MD and confirmed HR 153 BPM.
[2024-08-03 05:34] VITALS: BP 110/58; PULSE 63; RESP 17; TEMP 36.8; O2SAT 97
[2024-08-03 05:35] VITALS: BP 110/58; PULSE 63; RESP 17; TEMP 36.8; O2SAT 97
== END 2024-08-03 05:36 | disposition home or self-care (01) ==
PROVIDERS: Emergency Provider Internal Medicine; PCP Internal Medicine Geriatric Medicine
DX: O26.92 Pregnancy related conditions, unspecified, second trimester (principal); R60.0 Localized edema; Z3A.20 20 weeks gestation of pregnancy; Z79.899 Other long term (current) drug therapy
CPT/HCPCS: 93971; 99284

== ENCOUNTER → 2024-08-03 04:15 | Outpatient (BNV) | payer MEDICAID, SELFPAY | PROVIDERS: Emergency Provider Internal Medicine; PCP Internal Medicine Geriatric Medicine; Visit Provider Radiology Vascular & Interventional Radiology | DX: M79.651 Pain in right thigh (principal) | CPT/HCPCS: 93971 ==

== ENCOUNTER 2024-09-27 16:48 | Emergency (ER) | payer MEDICAID, SELFPAY ==
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
[2024-09-27 16:58] VITALS: BP 105/54; PULSE 79; RESP 18; TEMP 36.7; O2SAT 99; BMI 24.0
--- OUTSIDE RECORDS SUMMARY | 2024-09-27 17:25 | XMS_ITS | Encounter Summary ---
Author Organization [facility] Address [address] [place] [address] [address] [place] [address] Care Team Providers Care Plasma Processing Centrifuge Operator Name Role Phone Name, Rishi NAVARRETE Primary Care Provider [phone] Reason for Visit * Reason Onset Date Comments appt/ 01/08/2023 Encounter Details Date Type Department Care Team ([facility] Contact Info) Description 01/08/2023 Telephone [facility] [address] [place] [address] Julia Bullock, EDWINS [address] [place] [address] appt/ Social History Tobacco Use Types Packs/Day [...] Also, 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, because multiple x-rays will [...] Care Team (Late st Contact Info) Description 11/03/2024 10:15 AM EDT Office Visit [facility] [address] [place] [address] Name, MD Rishi [address] [place] [address] documented as of this encounter Visit Diagnoses Not on filedocumented in this encounter Additional Health Concerns Assessment Noted Time PHQ-9 Depression Total Score: 9 06/09/19 23 10:53 AM EDT documented as of this encounter Care Teams Plasma Processing Centrifuge Operator Relationship Specialty Start Date End Date Name, MD Rishi [address] [place] [address] PCP - General Family Medicine 10/10/16 documented as of this encounter
[2024-09-27 18:20] VITALS: BP 105/54; PULSE 79; RESP 18; TEMP 36.7; O2SAT 99
== END 2024-09-27 18:20 | disposition short-term general hospital (02) ==
PROVIDERS: Emergency Provider Emergency Medicine
DX: O60.03 Preterm labor without delivery, third trimester (principal); Z3A.28 28 weeks gestation of pregnancy
CPT/HCPCS: 99285